=== PATIENT | male | born 1970 | race Caucasian/White ===

== ENCOUNTER 2021-03-20 13:04 | Outpatient (REF) | payer MEDICARE, MEDICAID, SELFPAY ==
--- NOTE | ~2021-03-20 | XR_ITS ---
EXAMINATION: XR FOOT, LEFT CLINICAL INFORMATION: Left foot pain. COMPARISON: None TECHNIQUE: AP, lateral, and oblique views of the left foot. FINDINGS: There is mild subluxation at the 5th MTP joint. There is subcortical lucency and irregularity involving the distal 5th metatarsal on oblique views. There is mild loss of the 1st MTP joint space with periarticular spurring seen. No visible acute fracture or dislocation noted. The ankle mortise and subtalar joints are normal. There is a moderate calcaneal heel and retrocalcaneal enthesophytes. There is dorsal intertarsal spurring. Mild lateral foot soft tissue swelling is suspected. XR/XR foot LT min 3V IMPRESSION: Large calcaneal heel and retrocalcaneal enthesophytes. Minimal subluxation changes suspected at the 5th MTP joint. Mild degenerative changes with periarticular spurring 1st MTP joint. There is irregular-appearing distal 5th metatarsal with subchondral lucency and irregularity. This could be secondary to old injury, new or old bone marrow infection with adjacent soft tissue swelling. If there is clinical concern of distal 5th digit infection, further evaluation with MRI or bone scan can be performed.
== END 2021-03-20 13:05 | disposition home or self-care (01) ==
LOC: HO.XRAY 13:04
PROVIDERS: PCP Internal Medicine; Visit Provider Internal Medicine
DX: Z79.891 Long term (current) use of opiate analgesic (principal)
CPT/HCPCS: 73630

== ENCOUNTER 2024-10-21 10:28 | Outpatient (REF) | payer MEDICARE, MEDICAID, SELFPAY ==
--- NOTE | ~2024-10-21 | XR_ITS ---
EXAMINATION: XR HAND, RIGHT CLINICAL INFORMATION: swelling right middle finger COMPARISON: None available. TECHNIQUE: PA, lateral, and oblique views of the right hand. FINDINGS: Heavily comminuted fracture of the distal one half of the middle phalanx of the third digit, with fractures significant involving the DIP joint. There appears to be an erosive/permeative component with periostitis present, most notable on the lateral radiograph, suggesting this is a likely pathologic fractures superimposed upon underlying pathologic bone process. In addition, there is a prominent lucent erosion along the radial margin of the distal aspect of the first phalanx of the third digit. This is best seen on the oblique projection. This appears too proximal to be periarticular. No additional bone lesions identified. Remainder of the wrist appear intact and normally aligned. Diffuse soft tissue swelling of the third digit is present. XR/XR hand RT min 3V IMPRESSION: 1. Comminuted likely pathologic fracture of the distal one half of the middle phalanx of the third digit, with fractures and erosions significantly involving the DIP joint. Appearance is atypical for bland fracture, and pathologic fracture is highly suspected, either from pre-existing infection/osteomyelitis, or underlying pathologic bone lesion/metastasis. Consider renal cell carcinoma or lung carcinoma. Melanoma can also involve these regions. 2. There is a lucent lesion along the radial margin of the distal aspect of the first phalanx of the third digit. This appears too proximal to represent a periarticular erosion. This may represent an additional pathologic lesion. Urgent fax was sent to the provider at 11:20 AM, 10/21/2024. Electronically signed by: Francisco Hilario MD 10/21/2024 11:17 AM EDT
--- OUTSIDE RECORDS SUMMARY | 2024-10-21 11:52 | XMS_ITS | Encounter Summary ---
Author Organization [id number] Address [address] [facility] [address] [place] [address] Care Team Providers Care Casino Change Attendant Name Role Phone Arlet Beltran MD Primary Care Provider [phone] Reason for Visit * Reason Onset Date Comments Med Refill 10/13/2024 CSA Rx refill on Methadone Encounter Details Date Type Department Care Team (Late st Contact Info) Description 10/13/2024 Refill [facility] MEDICAL [address] [place] [address] Arlet Beltran MD [address] [place] [address] Chronic bilateral low back pain with bilateral sciatica Social History Tobacco Use Types Packs/Day Years Used Date Smoking Tobacco: Former Cigarettes Smokeless Tobacco: Never Alcohol Use Standard Drinks/Week Comments Not Currently 0 (1 standard drink = 0.6 oz pur e alcohol) Housing Stability Answer Date Recorded What is your housing situation today? I have josefina cyr 12/30/[address] you li ve. Do you have problems with any of the following? None of the above 12/30/2023 Food Insecurity Answer Date Recorded Within the past 12 months, y ou worried that your food would run out before you got money to buy more: Never True 12/30/2023 Within the past 12 months,th e food you bought just didn't last and you didn't have enough money to get more: Never True Transportation Answer Date Recorded In the past 12 months, has l ack of transportation kept you from medical appts, meetings, work or from getting things needed for daily living? No 12/30/2023 Utilities Answer Date Recorded In the past 12 months, has t he electric, gas, oil or water company threatened to shut off services in your home? No 12/30/2023 Depression Answer Date Recorded Patient Health Questionnaire-2 Score 2 12/30/2023 Internet Access Answer Date Recorded Internet Access Q1 Yes 02/16/2024 Internet Access Q2 Not on file 02/16/2024 Sex and Gender Information Value Date Recorded Sex Assigned at Male 04/18/2022 6:52 PM EDT Legal Sex Male 5:35 PM EDT Gender Identity Male 05/27/2022 2:12 PM EST Sexual Orientation Straight 05/27/2022 2: 12 PM EST documented as of this encounter Miscellaneous Notes * Telephone Encounter - JENNIFER Hobbs - 10/13/2024 8:09 AM EDT [facility] Last fill Date: 09/21/24 #[id number] [facility] sold Date: 09/24 Last OV:10/07/24 Next OV: 01/06/25 Last UTOX: 10/07/24 CSA Date: 03/28/23 DNF Date: due 10/22/24 documented in this encounter Plan of Treatment Upcoming Encounters Date Type Department Care Team (Late st Contact Info) Description 01/06/2025 10:30 AM EDT Office Visit [facility] MEDICAL [address] [place] [address] Arlet Beltran MD [address] [place] [address] documented as of this encounter Visit Diagnoses Diagnosis Chronic bilateral low back pain with bilateral sciatica documented in this encounter Care Teams Casino Change Attendant Relationship Specialty Start Date End Date Arlet Beltran MD [address] [place] [address] PCP - General Internal Medicine 08/15/23 documented as of this encounter
--- OUTSIDE RECORDS SUMMARY | 2024-10-21 11:52 | XMS_ITS | Encounter Summary ---
Author Organization [facility] Address [address] [place] [address] 7[address] [place] [address] Care Team Providers Care Head Still Operator Name Role Phone Arlet Beltran MD Primary Care Provider [phone] Chidi Ojeda NP Primary Care Provider [phone] Arlet Beltran MD Primary Care Provider [phone] Encounter Details Date Type Department Care Team (Late st Contact Info) Description 05/15/2022 Abstract [facility] [address] [place] [address] Arlet Beltran MD [address] [place] [address] Social History Tobacco Use Types Packs/Day Years Used Date Smoking Tobacco: Never Assessed Sex and Gender Information Value Date Recorded Sex Assigned at Male 04/18/2022 6:52 PM EDT Legal Sex Male 5:35 PM EDT Gender Identity Male 05/27/2022 2:12 PM EST Sexual Orientation Straight 05/27/2022 2: 12 PM EST documented as of this encounter Plan of Treatment Upcoming Encounters Date Type Department Care Team (Late st Contact Info) Description 01/06/2025 10:30 AM EDT Office Visit [facility] [address] [place] [address] Arlet Beltran MD [address] [place] [address] documented as of this encounter Visit Diagnoses Not on filedocumented in this encounter Care Teams Head Still Operator Relationship Specialty Start Date End Date Arlet Beltran MD [address] [place] [address] PCP - General Internal Medicine 04/14/23 08/03/23 Chidi Ojeda NP [address] [place] [address] PCP - General Internal Medicine 08/04/23 08/14/23 Arlet Beltran MD [address] [place] [address] PCP - General Internal Medicine 08/15/23 documented as of this encounter
--- OUTSIDE RECORDS SUMMARY | 2024-10-21 11:52 | XMS_ITS | Clinical Summary ---
Author Organization [address] [place] [address] Address [address] [place] [address] Phone Care Team Providers Care Bilingual Legal Assistant Name Role Phone Arlet Beltran MD Primary Care Provider [phone] Allergies Active Allergy Reactions Criticality Noted Date Comments Cephalexin 05/15/2022 Other reaction(s): Unknown Ciprofloxacin-Hydrocortisone Swelling 010 Cyproheptadine 05/15/2022 Other reaction(s): Unknown Metronidazole 05/15/2022 Other reaction(s): Unknown Medications magnesium aspart,citrate, oxide (Triple Magnesium Complex) 400 mg magnesium capsule Take 1 Tablet by mouth 2 times daily. Active methadone (DOLOPHINE) 10 mg tablet Take 2 Tablets by mouth 3 times daily. Active atorvastatin (LIPITOR) 80 mg tablet Take 1 Tablet by mouth daily. Active warfarin (COUMADIN) 2 mg tablet Managed by [facility]. Active metFORMIN XR (GLUCOPHAGE-XR) 500 mg 24 hr tablet Take 4 Tablets by mouth Daily before dinner. Active pregabalin (LYRICA) 100 mg capsule Take 1 Capsule by mouth 2 times daily. Active ALPRAZolam (XANAX) 1 mg tablet Take 1 Tablet by mouth 2 times daily. Active SITagliptin phosphate (Januvia) 100 mg tablet Take 1 Tablet by mouth daily. Active potassium chloride 20 mEq tablet extended release Take 1 Tablet by mouth daily. Active furosemide (LASIX) 20 mg tablet Take 2 Tablets by mouth daily. Active metoprolol tartrate (LOPRESSOR) 25 mg tablet Take 1 Tab by mouth 2 times daily. 06/04/2010 Active Active Problems Problem Noted Date Diagnosed Date Peripheral arterial disease (CMS/HCC V24) 2023 Overview (04/20/2024): Last Assessment & Plan: Going to have peripheral ultrasounds performed to see if there is arterial disease in this gentleman. He will certainly has some component of venous insufficiency. Pending the results over refer him to our vascular physician for further management. I recommended leg elevation when not ambulatory, continue diuretics. He has been resistant to use of vascular support stockings in the past. 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 He is being morbidly obese and lost quite a bit of weight. Previous evaluation suggested preserved left ventricular function but I do not see one for quite some time. Last Assessment & Plan: This gentleman has peripheral edema and likely has peripheral arterial and venous insufficiency. He is following a fairly low-sodium diet. He has been on a stable diuretic dose with a fairly normal creatinine and potassium today. I would continue with his current diuretic dose and we will assess his LV function with a repeat echocardiogram. He will continue to monitor his weight closely. Coronary artery disease 07/11/2010 Overview (04/20/2024): LM normal, distal LAD moderate diffuse disease, mid LAD 80% stenosis, OM1, very small with severe diffuse disease, OM2 small-medium with diffuse 80% stenosis, RCA distal vessel very small and 100% stenosis. EF 45-50% Overall, the patient's CAD is unattractive for PCI or CABG. Last Assessment & Plan: No active angina but limited physically and has a history of diabetes. He is pending abdominal surgery and I would like to get a pharmacologic nuclear study prior to his proceeding to be sure there is no significant ischemic burden. He will continue on simvastatin, metoprolol and aspirin.If this gentleman has a fairly benign nuclear study and relatively preserved LVEF and this should be a fairly modest risk from a cardiac standpoint with proceeding with his abdominal surgery and no further testing would be needed. Hyperlipidemia with target LDL less than 70 06/17 Overview (04/20/2024): IMO update Last Assessment & Plan: Continue with simvastatin. Goal LDL would be less than 70 and even lower ideally Hypertension 07/11/2010 Ventricular tachycardia (CMS/HCC V24, CMS/HCC V2 8) 07/11/2010 Overview (04/20/2024): History of a cardiac arrest after postoperative abdominal surgery bleeding with apparent NSTEMI. He did have an ICD placed however that was ultimately removed after he developed mitral valve endocarditis. Given his LVEF is preserved it was not replaced. He has been on amiodarone since then. Last Assessment & Plan: This 53-year-old gentleman is on chronic amiodarone for arrhythmia suppression. He has been maintaining sinus rhythm but I wonder at his young age whether he can tolerate long-term amiodarone. I think it is reasonable to have him come off of the amiodarone and monitor for any recurrent arrhythmias if his LVEF is in the normal range and he has no significant ischemic burden based on the nuclear study. Immunizations Name Administration Dates Next Due Moderna SARS-CoV-2 COVID-19, mRNA, LNP-S, preservative free 11/16/2020,10/19/2020 Social History Tobacco Use Types Packs/Day Years Used Date Smoking Tobacco: Former Smokeless Tobacco: Former Quit: 05/01/2010 Alcohol Use Standard Drinks/Week Comments Not Currently 0 (1 standard drink = 0.6 oz pur e alcohol) Sex and Gender Information Value Date Recorded Sex Assigned at Not on file Legal Sex Male 9:47 AM EST Gender Identity Not on file Sexual Orientation Not on file Obstetrics History Last Filed Vital Signs Vital Sign Reading Time Taken Comments Blood Pressure 130/80 07/16/2024 7:44 AM EST Pulse 71 07/16/2024 7:44 AM EST Temperature - - Respiratory Rate - - Oxygen Saturation 97% 07/16/2024 7:44 AM EST Inhaled Oxygen Concentration - - Weight 118 kg (260 lb) 07/16/2024 7:44 AM EST Height 182.9 cm (6') 07/16/2024 7:44 AM EST Body Mass Index 35.26 07/16/2024 7:44 AM EST Plan of Treatment Health Maintenance Due Date Last Done Comments Diabetes: Annual Foot Exam 1980 Diabetes: Annual Retina Eye Exam 1980 Hepatitis B Vaccines (1 of 3 - 19+ 3-dose series) 1989 Pneumococcal Vaccine: 50+ Years (2 of 2 - PCV) 2020 09/08/2013, 11/07/2010 Zoster Vaccines (1 of 2) 2020 Colorectal Cancer Screening: Colonoscopy 05/19/2022 Depression Screening 05/19/2022 HIV Screening 05/19/2022 Hepatitis C Screening 05/19/2022 Medicare Annual Wellness Visit 05/19/2022 Social Influencers of Health Screening 05/19/2022 COVID-19 Vaccine ( season) 2024 06/06/2022, 11/16/2020, 10/19/2020 Diabetes: Blood Sugar Control Test (HGBA1C) 07/16/2024 12/30/2023, 08/12/2023 Diabetes: Annual Urine Albumin-Creatinine Ratio (uACR) 08/12/2024 08/12/2023 Diabetes: Annual GFR (Glomerular Filtration Rate) 08/12/2024 08/12/2023 Hypertension/CHF/CAD Annual BMP Blood Test 08/12/2024 08/12/2023 DTaP,Tdap,and Td Vaccines (3 - Td or Tdap) 05/31/2025 05/31/2015, 02/23/2013 Cholesterol Screening (Lipid Panel) 08/12/2028 08/12/2023, 08/12/2023 Pneumococcal Vaccine: Pediatrics (0 to 5 Years) and At-Risk Patients (6 to 64 Years) Aged Out 09/08/2013, 11/07/2010 No longer eligibl e based on patient's age to complete this topic MMR Vaccines Aged Out 09/08/2014 No longer eligi ble based on patient's age to complete this topic Influenza Vaccine Completed 04/13/2024, , 06/06/2022, Additional history exists HIB Vaccines Aged Out No longer eligi ble based on patient's age to complete this topic HPV Vaccines Aged Out No longer eligi ble based on patient's age to complete this topic Hepatitis A Vaccines Aged Out No long er eligible based on patient's age to complete this topic IPV Vaccines Aged Out No longer eligi ble based on patient's age to complete this topic Meningococcal ACWY Vaccine Aged Out N o longer eligible based on patient's age to complete this topic Meningococcal B Vaccine Aged Out No l onger eligible based on patient's age to complete this topic RSV Immunization Patients Under 20 months Aged Out No longer eligible based on patient's age to complete this topic Varicella Vaccines Aged Out No longer eligible based on patient's age to complete this topic Procedures Procedure Name Priority Date/Time Associated Diagnosis Comments URINE ALBUMIN CREATININE RATIO Routine 08/12/2023 ANNUAL BMP BLOOD TEST Routine 08/12/2023 HEMOGLOBIN A1C Routine 08/12/2023 LIPID PANEL Routine 08/12/2023 from Last 3 Months or Most Recently Relevant to Health Maintenance Results * Urine Albumin Creatinine Ratio (08/12/2023) Pathologist [facility] Urine Albumin Creatinine Ratio Abstracted Result [facility] Provider HEALTH MAINTENANCE Final Result * Annual BMP Blood Test (08/12/2023) Pathologist [facility] Annual BMP Blood Test Abstracted [facility] Provider HEALTH MAINTENANCE Final Result * Hemoglobin A1c (08/12/2023) Pathologist [facility] Hemoglobin A1C 0.0 % Comment:No interpretation, A bstracted Blood Venous blood specimen / Unknown [facility] Provider LAB BLOOD ORDERABLES Michaela l Result * Lipid panel (08/12/2023) Pathologist [facility] Triglycerides 0 mg/dL Comment:No interpretation, A bstracted Cholesterol 0 mg/dL Comment:No interpretation, A bstracted HDL 0 mg/dL Comment:No interpretation, A bstracted LDL Cholesterol 0 mg/dL Comment:No interpretation, A bstracted Blood Venous blood specimen / Unknown us Historical Provider LAB BLOOD ORDERABLES Michaela l Result from Last 3 Months or Most Recently Relevant to Health Maintenance Insurance MEDICARE MEDICAID - [place] Care Teams Bilingual Legal Assistant Relationship Specialty Start Date End Date Arlet Beltran MD [address] [place] [address] PCP - General 08/25/13
--- OUTSIDE RECORDS SUMMARY | 2024-10-21 11:52 | XMS_ITS | Encounter Summary ---
Author Organization [facility] Address [address] [place] [address] 7[address] [place] [address] Care Team Providers Care Slubber Tender Name Role Phone Arlet Beltran MD Primary Care Provider [phone] Chidi Ojeda NP Primary Care Provider [phone] Arlet Beltran MD Primary Care Provider [phone] Encounter Details Date Type Department Care Team (Latest Contact Info) Description 11/20/2018 Abstract [facility] CONVERSIONS Dental, Provider, DDS Social History Tobacco Use Types Packs/Day Years [...] Description 01/06/2025 10:30 AM EDT Office Visit [facility] MEDICAL [address] [place] [address] Arlet Beltran MD [address] [place] [address] documented as of this encounter Visit Diagnoses Not on filedocumented in this encounter Care Teams Slubber Tender Relationship Specialty Start Date End Date Arlet Beltran MD [address] [place] [address] PCP - General Internal Medicine 04/14/23 08/03/23 Chidi Ojeda NP [address] [place] [address] PCP - General Internal Medicine 08/04/23 08/14/23 Arlet Beltran MD [address] [place] [address] PCP - General Internal Medicine 08/15/23 documented as of this encounter
--- OUTSIDE RECORDS SUMMARY | 2024-10-21 11:52 | XMS_ITS | Clinical Summary ---
Author Organization [facility] Address [address] [place] [address] Care Team Providers Care Corporate Travel Manager Name Role Phone Unavailable Primary Care Provider Unavailabl e Source Comments PLEASE NOTE, if this patient is a minor, it may be UNLAWFUL to discuss sensitive information that is contained in these records (such as FAMILY PLANNING, MENTAL HEALTH or SUBSTANCE ABUSE) with the minor patient's parent or other person without the patient's specific authorization.[facility] Allergies Active Allergy Reactions Criticality Noted Date Comments Cephalexin 05/15/2022 Other reaction(s): Unknown Ciprofloxacin 05/15/2022 Other reaction(s): Unknown Cyproheptadine 05/15/2022 Other reaction(s): Unknown Metronidazole 05/15/2022 Other reaction(s): Unknown Medications magnesium 250 mg tab Take 1 Capsule by mouth 4 (four) times a day Active ALPRAZolam (XANAX) 1 mg tablet Take 1 mg by mouth twice a day 05/30/2023 Active atorvastatin (LIPITOR) 80 mg tablet Take 1 Tablet by mouth once daily 11/28/2022 Active lisinopriL 10 mg tablet 1 Tablet daily 06/05/2021 Active metFORMIN XR (GLUCOPHAGE-XR) 500 mg 24 hr tablet Take 2,000 mg by mouth 12/24/2022 Active metOLazone (ZAROXOLYN) 2.5 mg tablet Take 2.5 mg by mouth daily 09/02/2022 Active metoprolol tartrate (LOPRESSOR) 25 mg tablet TAKE 1/2 TABLET BY MOUTH 2 TIMES DAILY X90 DAYS 05/22/2023 Active pantoprazole (PROTONIX) 20 mg EC tablet TAKE 1 TABLET BY MOUTH EVERY DAY FOR 90 DAYS 04/17/2023 Active KLOR-CON 20 mEq tablet Take 1 Tablet by mouth once daily 12/09/2022 Active pregabalin (LYRICA) 100 mg capsule Take 100 mg by mouth twice a day 05/30/2023 Active JANUVIA 100 mg tablet Take 1 Tablet by mouth once daily 07/01/2022 Active warfarin (COUMADIN) 2.5 mg tablet TAKE 1 AND 1/2 TABLETS BY MOUTH EVERY DAY for 90 09/02/2022 Active loperamide (IMODIUM) 2 mg capsule TAKE 1 CAPSULE BY MOUTH 4 TIMES A DAY NEEDED for 30 07/01/2023 Active furosemide (LASIX) 40 mg tablet TAKE 1 TABLET BY MOUTH EVERY DAY for 90 09/02/2022 Active amoxicillin (AMOXIL) 500 mg capsule TAKE 4 CAPSULES (2,000 MG) BY MOUTH 1 (ONE) TIME FOR 1 DOSE. 07/01/2023 Active Active Problems Problem Noted Date Diagnosed Date Diverticulitis 05/28/2022 Hypertriglyceridemia 05/28/2022 Atherosclerosis of coronary artery 05/27/2022 Atopic dermatitis 05/27/2022 CHF (congestive heart failure) ([facility]) 022 Chronic pain after traumatic injury 05/27/2022 Depression 05/27/2022 Entrapment of right ulnar nerve 05/27/2022 Eosinophilia 05/27/2022 Essential (primary) hypertension 05/27/2022 Gastro-esophageal reflux disease without esophag itis 05/27/2022 Gout of right foot 05/27/2022 H/O mitral valve replacement with mechanical christal ve 05/27/2022 History of partial colectomy 05/27/2022 Hx of CABG 05/27/2022 Hyperglycemia due to diabetes mellitus ([facility]) 05/27/2022 Hyperlipidemia 05/27/2022 Hypomagnesemia 05/27/2022 Resolved Problems Problem Noted Date Diagnosed Date Resolved Date Diarrhea 05/27/2022 08/04/2023 Social History Tobacco Use Types Packs/Day Years Used Date Smoking Tobacco: Never Assessed Social Connections Answer Date Recorded Connectedness 0 02/29/2024 Financial Resource Strain Answer Date R ecorded Financial Resource Strain 0 2023 Stress Answer Date Recorded Stress 0 06/23/2023 Physical Activity Answer Date Recorded Physical Activity 0 06/23/2023 Food Insecurity Answer Date Recorded Food 0 03/11/2024 Transportation Needs Answer Date Record ed Transportation 0 06/23/2023 Housing Stability Answer Date Recorded Housing 0 06/23/2023 Safety and Environment Answer Date Kobe rded Safety 0 06/23/2023 Utilities Answer Date Recorded Utilities 0 06/23/2023 Employment Answer Date Recorded Stress 0 02/29/2024 Sex and Gender Information Value Date Recorded Sex Assigned at Not on file Legal Sex Male 10:53 AM PST Gender Identity Not on file Sexual Orientation Not on file Plan of Treatment Health Maintenance Due Date Last Done Comments Anxiety Screening 1970 Depression Monitoring 1970 Diabetes Foot Exam 1970 Hepatitis C Screening 1970 Lipid Screening 1970 Serum Creatinine 1970 Tobacco Screening 1970 Urine Albumin Creatinine Rat io Screening 1970 Retinopathy Screening 1983 HIV Screening 1985 Imm-Hepatitis B (1 of 3 - 19 + 3-dose series) 1989 Imm-Pneumococcal (2 of 2 - PCV) 09/08/2014 4, 11/07/2010 CT Colonography 2015 Colonoscopy 2015 Colorectal Cancer Screening 2015 FIT/gFOBT 2015 Fecal DNA 2015 Flexible Sigmoidoscopy 2015 Imm-Zoster, Recombinant (1 of 2) 2020 Diabetes HbA1c 03/26/2023 12/24/2022, 12/07/2021, 10/29/2019, Additional history exists [id number] ( season) 2024 06/06/2022, 11/16/2020, 10/19/2020 Imm-Influenza (#1) 2024 03/28/2023, 1 08/06/2020, 03/06/2021, Additional history exists Alcohol and Drug Screen 06/16/2024 Imm-DTaP/Tdap/Td (3 - Td or Tdap) 05/31/2025 015, 02/23/2013 Insurance [place] MEDICAID DENT[place] Member Subscriber Plan / Payer (Ef fective 2023-Present) Name:Sami Daniel Relation to Subscriber:Self Name:Daniel Palmer Payer ID:[id number] Group ID:Not on file Type:Medicaid Address: [place] [id number]
--- OUTSIDE RECORDS SUMMARY | 2024-10-21 11:52 | XMS_ITS | Encounter Summary ---
Author Organization [employer] [facility] Address [address] [place] [address] [address] [place] [address] Care Team Providers Care Crystal Cutter Name Role Phone Arlet Beltran MD Primary Care Provider [phone] Chidi Ojeda NP Primary Care Provider [phone] Arlet Beltran MD Primary Care Provider [phone] Reason for Visit * Reason Onset Date Comments Med Refill 05/22/2023 Encounter Details Date Type Department Care Team (Late st Contact Info) Description 05/22/[address] [facility] MEDICAL [address] [place] [address] Arlet Beltran MD [address] [place] [id number] Chronic pain after traumatic injury Social History Tobacco Use Types Packs/Day Years [...] Description 01/06/2025 10:30 AM EDT Office Visit [facility] MEDICAL [address] [place] [address] Arlet Beltran MD [address] [place] [address] documented as of this encounter Visit Diagnoses Diagnosis Chronic pain after traumatic injury documented in this encounter Care Teams Crystal Cutter Relationship Specialty Start Date End Date Arlet Beltran MD [address] [place] [address] PCP - General Internal Medicine 04/14/23 08/03/23 Chidi Ojeda NP [address] [place] [address] PCP - General Internal Medicine 08/04/23 08/14/23 Arlet Beltran MD [address] [place] [address] PCP - General Internal Medicine 08/15/23 documented as of this encounter
--- OUTSIDE RECORDS SUMMARY | 2024-10-21 11:52 | XMS_ITS | Encounter Summary ---
Author Organization [facility] Address [address] [place] [address] 7[address] [place] [address] Care Team Providers Care Sweeper Brush Maker Machine Name Role Phone Arlet Beltran MD Primary Care Provider [phone] Reason for Visit * Reason Onset Date Comments Med Refill 10/23/2023 Encounter Details Date Type Department Care Team (Late st Contact Info) Description 10/23/2023 Refill [facility] MEDICAL [address] [place] [address] Arlet Beltran MD [address] [place] [address] Chronic bilateral low back pain with bilateral [...] Description 01/06/2025 10:30 AM EDT Office Visit [address] [address] Arlet Beltran MD [address] [place] [address] documented as of this encounter Visit Diagnoses Diagnosis Chronic bilateral low back pain with bilateral sciatica documented in this encounter Care Teams Sweeper Brush Maker Machine Relationship Specialty Start Date End Date Arlet Beltran MD [address] [place] [address] PCP - General Internal Medicine 08/15/23 documented as of this encounter
--- OUTSIDE RECORDS SUMMARY | 2024-10-21 11:52 | XMS_ITS | Encounter Summary ---
Author Organization [facility] Address [address] [place] [address] 7t [place] [address] Care Team Providers Care Cutter Operator Asbestos Shingle Name Role Phone Arlet Beltran MD Primary Care Provider [phone] Chidi Ojeda NP Primary Care Provider [phone] Arlet Beltran MD Primary Care Provider [phone] Encounter Details Date Type Department Care Team (Late st Contact Info) Description 05/28/2022 Orders Only [facility] MEDICAL [address] [place] [address] Gricel La [place] Social History Tobacco Use Types Packs/Day Years [...] Description 01/06/2025 10:30 AM EDT Office Visit [facility] [address] [place] [address] Arlet Beltran MD [address] [place] [address] documented as of this encounter Procedures Procedure Name Priority Date/Time Associated Diagnosis Comments METHADONE+METABOLITE CONFIRMATION, ORAL FLUID Routine 03/28/2023 11:32 AM EDT CBC Routine 06/06/2022 9:40 AM EST TSH Routine 06/06/2022 9:40 AM EST LIPID PANEL, STANDARD Routine 06/06/2022 9:40 AM EST COMPREHENSIVE METABOLIC PANEL Routine 06/06/2022 9:40 AM EST documented in this encounter Results * (ABNORMAL) Methadone+Metabolite Confirmation, Oral Fluid (03/28/2023 11:32 AM EDT) Methadone+Metabo lite in Saliva by Confirmatory method POSITIVE(A) [facility] Comment: Reference range: Cutoff EQ 10 (NOTE) Confirmation performed by Mass Spectrometry EDDP NEGATIVE [facility] Comment:Reference range: Cut off EQ 25 Methadone, Oral Fluid POSITIVE(A) [facility] Methadone 71 [facility] Comment: Reference range: Cutoff EQ 25 Unit: ng/mL Testing performed or reported by [facility], a Service of [facility], [address] [place] [address] Bobby Pacheco MD, Electronic Test Technician CLIA# [id number] 03/28/2023 11:3 2 AM EDT 03/28/2023 7:28 PM EDT Arlet Beltran MD LAB BODY FLUIDS AND STOOLS ORDER CLAUDE Final Result [facility] [address] [place] [address] * (ABNORMAL) TSH (06/06/2022 9:40 AM EST) TSH 5.61(H) (0.4-4.2) uIU/mL [facility] Comment: Testing performed or reported by [facility], a Service of [facility], [address] [place] [address] Elias Liao MD, Electronic Test Technician CLIA# [id number] 06/06/2022 9:40 AM EST 06/06/2022 9:46 AM EST Arlet Beltran MD LAB BLOOD ORDERABLES Final Resul t Performing Organization Address [facility]/ZIP Co de Phone Number [facility] [address] [place] [address] * (ABNORMAL) Lipid Panel, Standard (06/06/2022 9:40 AM EST) Cholesterol, Total 134 (<200) MG/DL [facility] Triglyceride (mg/dL) in Serum/Plasma 494(H) (<150) MG/DL [facility] HDL Cholesterol 25(L) (>39) MG/DL [facility] LDL Cholesterol, Calculated 10 (0-130) MG/DL [facility] Non HDL Chol. (LDL+VLDL) 109 (<160) MG/DL [facility] Comment: Testing performed or reported by [facility], a Service of [facility], [address] [place] [address] Elias Liao MD, Electronic Test Technician [facility]# [id number] 06/06/2022 9:40 AM EST 06/06/2022 9:46 AM EST Arlet Beltran MD LAB BLOOD ORDERABLES Final Resul t Performing Organization Address [facility] Co de Phone Number [address] [address] * (ABNORMAL) Comprehensive Metabolic Panel (06/06/2022 9:40 AM EST) Glucose 343(H) (70-99) MG/DL [facility] BUN 38(H) (6-20) MG/DL [facility] Creatinine, Serum 1.1 (0.7-1.2) MG/DL [facility] Sodium 135 (133-145) MMOL/L [facility] Potassium 4.2 (3.6-5.2) MMOL/L [facility] Chloride 89(L) (98-107) MMOL/L [facility] Bicarbonate 29 (22-29) MMOL/L [facility] Anion Gap 17 (4-17) [facility] Albumin 4.3 (3.4-4.8) GM/DL [facility] Calcium 9.5 (8.6-10.5) MG/DL [facility] Bilirubin, Total 0.6 (0-1.2) MG/DL [facility] Total Protein 8.2 (6.2-8.2) GM/DL [facility] Albumin/Globulin Ratio 1.1 [facility] AST 26 (0-40) U/L [facility] Alkaline Phosphatase 77 (40-129) U/L [facility] ALT (SGPT) 17 (0-41) U/L [facility] eGFR Creatinine 83 ML/MIN/1.7 3 M2 [facility] Comment: Creatinine based estimated glomerular filtration (eGFR) in adults is calculated using the [employer] recommended 2020 CKD-EPI equation. Estimates GFR from serum creatinine, age and sex. Testing performed or reported by [facility], a Service of [facility], [address] [place] [address] Elias Liao MD, Electronic Test Technician [facility]# [id number] 06/06/2022 9:40 AM EST 06/06/2022 9:46 AM EST us Arlet Beltran MD LAB BLOOD ORDERABLES Final Resul t [address] [address] * (ABNORMAL) CBC (06/06/2022 9:40 AM EST) WBC 6.6 (4.0-11.0) K/MM3 [facility] RBC 4.20(L) (4.70-6.10 ) M/MM3 [facility] HGB 11.2(L) (13.7-17.1 ) GM/DL [facility] HCT 36.6(L) (40.5-50.0 ) % [facility] MCV 87.1 (80.0-94.0 ) FL [facility] MCH 26.7(L) (27.0-34.0 ) PG [facility] McHC 30.6(L) (33.0-37.0 ) g/dL [facility] PLT 267 (150-460) K/MM3 [facility] RDW-SD 47.7(H) (<47.0) FL [facility] MPV 12.3 (9.4-12.4) FL [facility] Automated NRBC 0.0 #/100 WBC'S [facility] ABS NRBC 0.0 K/MM3 [facility] Comment: Testing performed or reported by [facility], a Service of [facility], [address] [place] [address] Elias Liao MD, Electronic Test Technician [facility]# [id number] 06/06/2022 9:40 AM EST 06/06/2022 9:46 AM EST us Arlet Beltran MD LAB BLOOD ORDERABLES Final Resul t [facility] [address] [place] [address] documented in this encounter Visit Diagnoses Not on filedocumented in this encounter Care Teams Cutter Operator Asbestos Shingle Relationship Specialty Start Date End Date Arlet Beltran MD [address] [place] [address] PCP - General Internal Medicine 04/14/23 08/03/23 Chidi Ojeda NP [address] [place] [address] PCP - General Internal Medicine 08/04/23 08/14/23 Arlet Beltran MD [address] [place] [address] PCP - General Internal Medicine 08/15/23 documented as of this encounter
--- OUTSIDE RECORDS SUMMARY | 2024-10-21 11:52 | XMS_ITS | Encounter Summary ---
Author Organization [employer] [facility] Address [address] [place] [address] 7t [place] [address] Care Team Providers Care Auto Repair Shop Manager Name Role Phone Arlet Beltran MD Primary Care Provider [phone] Chidi Ojeda NP Primary Care Provider [phone] Arlet Beltran MD Primary Care Provider [phone] Reason for Visit * Reason Onset Date Comments Med Refill 05/30/2023 Encounter Details Date Type Department Care Team (Late st Contact Info) Description 05/30/2023 Refill [facility] MEDICAL [address] [place] [address] Arlet Beltran MD [address] [place] [address] Panic attacks; Chronic pain after traumatic injury Social History [...] encounter Miscellaneous Notes * Telephone Encounter - Arielle Jose, Fazal - 05/30/2023 2:48 PM EST [facility] Last fill Date: 05/06/23 Last OV: 03/28/23 Next OV: 07/04/23 Last UTOX: 03/28/23 CSA Date: 03/28/23 DNF Date: REFILL DUE DATE 06/03/23 documented in this encounter Plan of Treatment Upcoming Encounters Date Type Department Care Team (Late st Contact Info) Description 01/06/2025 10:30 AM EDT Office Visit [facility] MEDICAL [address] [place] [address] Arlet Beltran MD [address] [place] [address] documented as of this encounter Visit Diagnoses Diagnosis Panic attacks Panic disorder without agoraphobia Chronic pain after traumatic injury documented in this encounter Care Teams Auto Repair Shop Manager Relationship Specialty Start Date End Date Arlet Beltran MD [address] [place] [address] PCP - General Internal Medicine 04/14/23 08/03/23 Chidi Ojeda NP [address] [place] [address] PCP - General Internal Medicine 08/04/23 08/14/23 Arlet Beltran MD [address] [place] [address] PCP - General Internal Medicine 08/15/23 documented as of this encounter
--- OUTSIDE RECORDS SUMMARY | 2024-10-21 11:52 | XMS_ITS | Encounter Summary ---
Author Organization [employer] Address [address] [facility] 7t [place] [address] Care Team Providers Care Beer Cooler Name Role Phone Arlet Beltran MD Primary Care Provider [phone] Encounter Details Date Type Department Care Team (Late st Contact Info) Description 01/20/2024 Orders Only [facility] MEDICAL [address] [place] [address] ProviderRowena MD Social History Tobacco Use Types Packs/Day Years Used Date Smoking Tobacco: Former Cigarettes Smokeless Tobacco: Never Alcohol Use Standard Drinks/Week Comments Not Currently 0 (1 standard drink = 0.6 oz pur e alcohol) Housing Stability Answer Date Recorded What is your housing situation today? I have josefinayang cyr 12/30/[address] you [...] Recorded Patient Health Questionnaire-2 Score 2 12/30/2023 Sex and Gender Information Value Date Recorded Sex Assigned at Male 04/18/2022 6:52 PM EDT Legal Sex Male 5:35 PM EDT Gender Identity Male 05/27/2022 2:12 PM EST Sexual Orientation Straight 05/27/2022 2: 12 PM EST documented as of this encounter Plan of Treatment Upcoming Encounters Date Type Department Care Team (Late st Contact Info) Description 01/06/2025 10:30 AM EDT Office Visit [facility] MEDICAL [address] [place] [address] Arlet Beltran MD [address] [place] [address] documented as of this encounter Procedures Procedure Name Priority Date/Time Associated Diagnosis Comments VASC US LOWER EXTREMITY VENOUS DUPLEX BILATERAL Routine 01/08/2024 7:17 PM EDT documented in this encounter Results * VASC US Lower Extremity Venous Duplex Bilateral (01/08/2024 7:17 PM EDT) us Historical Provider CV VASCULAR PROCEDURES Fi nal Result documented in this encounter Visit Diagnoses Not on filedocumented in this encounter Care Teams Beer Cooler Relationship Specialty Start Date End Date Arlet Beltran MD [address] [place] [address] PCP - General Internal Medicine 08/15/23 documented as of this encounter
--- OUTSIDE RECORDS SUMMARY | 2024-10-21 11:52 | XMS_ITS | Encounter Summary ---
Author Organization [employer] Address [address] [place] [address] 7[address] [place] [address] Care Team Providers Care Precision Instrument Maker And Repairer Name Role Phone Arlet Beltran MD Primary Care Provider [phone] Chidi Ojeda NP Primary Care Provider [phone] Arlet Beltran MD Primary Care Provider [phone] Reason for Visit * Reason Comments Med Refill Encounter Details Date Type Department Care Team (Late st Contact Info) Description 05/30/2023 Refill [facility] MEDICAL [address] [place] [address] Arlet Beltran MD [address] [place] [address] Chronic pain after traumatic injury; Panic attacks Social History Tobacco Use Types Packs/Day Years [...] encounter Miscellaneous Notes * Telephone Encounter - Dawson Armstrong CMA - 05/30/2023 10:00 AM EST We received duplicate requests for these meds. documented in this encounter Plan of Treatment Upcoming Encounters Date Type Department Care Team (Late st Contact Info) Description 01/06/2025 10:30 AM EDT Office Visit [facility] MEDICAL [address] [place] [address] Arlet Beltran MD [address] [place] [address] documented as of this encounter Visit Diagnoses Diagnosis Chronic pain after traumatic injury Panic attacks Panic disorder without agoraphobia documented in this encounter Care Teams Precision Instrument Maker And Repairer Relationship Specialty Start Date End Date Arlet Beltran MD [address] [place] [address] PCP - General Internal Medicine 04/14/23 08/03/23 Chidi Ojeda NP [address] [place] [address] PCP - General Internal Medicine 08/04/23 08/14/23 Arlet Beltran MD [address] [place] [address] PCP - General Internal Medicine 08/15/23 documented as of this encounter
--- OUTSIDE RECORDS SUMMARY | 2024-10-21 11:52 | XMS_ITS | Clinical Summary ---
Author Organization [employer] Address [address] [place] [address] [address] [place] [address] Care Team Providers Care Television Parts Tester Name Role Phone Arlet Beltran MD Primary Care Provider [phone] Allergies Active Allergy Reactions Criticality Noted Date Comments Cephalexin 05/15/2022 Other reaction(s): Unknown Ciprofloxacin 05/15/2022 Other reaction(s): Unknown Cyproheptadine 05/15/2022 Other reaction(s): Unknown Metronidazole 05/15/2022 Other reaction(s): Unknown Medications lisinopril 10 MG tablet 1 tablet in the morning. 06/05/20 21 Active magnesium 250 MG tablet Take 1 capsule by mouth 4 times daily. Active mupirocin (Bactroban) 2 % ointment APPLY 1 APPLICATION ON THE SKIN DAILY HEEL ULCER 10/16/19 24 Active KLOR-CON 20 MEQ ER tablet TAKE 1 TABLET BY MOUTH EVERY DAY 90 tablet 3 11/08/19 24 Active metFORMIN XR (Glucophage-XR ) 500 MG 24 hr tablet TAKE 4 TABLETS (2,000 MG) BY MOUTH WITH EVENING MEAL. DO NOT CRUSH, CHEW, OR SPLIT. 360 tablet 3 03/08/20 24 025 Active pantoprazole (ProtoNix) 20 MG EC tabletIndicati ons:Gastro-eso phageal reflux disease without esophagitis TAKE 1 TABLET BY MOUTH EVERY DAY 90 tablet 3 04/13/20 24 Active Januvia 100 MG tabletIndicati ons:Hyperglyce ana rosa due to diabetes mellitus (CMS/HCC) TAKE 1 TABLET BY MOUTH EVERY DAY IN THE MORNING 90 tablet 3 07/07/19 25 Active metoprolol tartrate (Lopressor) 25 MG tabletIndicati ons:Atheroscle rotic heart disease of [place] coronary artery without angina pectoris TAKE 1/2 TABLET BY MOUTH 2 TIMES DAILY X90 DAYS 90 tablet 08/02/19 25 Active ALPRAZolam (Xanax) 1 MG tabletIndicati ons:Panic attacks Take 1 tablet (1 mg) by mouth 2 times daily. 56 tablet 3 08/20/19 25 Active pregabalin (Lyrica) 100 MG capsuleIndicat ions:Chronic pain after traumatic injury Take 1 capsule (100 mg) by mouth 2 times daily. 56 capsule 3 08/20/19 25 Active atorvastatin (Lipitor) 80 MG tablet TAKE 1 TABLET (80 MG) BY MOUTH IN THE MORNING 90 tablet 3 09/10/19 25 Active warfarin (Coumadin) 2.5 MG tabletIndicati ons:Congestive heart failure, unspecified HF chronicity, unspecified heart failure type (CMS/HCC) TAKE 1 AND 1/2 TABLETS BY MOUTH EVERY DAY for 90 135 tablet 3 09/24/19 25 Active metOLazone (Zaroxolyn) 2.5 MG tabletIndicati ons:Congestive heart failure, unspecified HF chronicity, unspecified heart failure type (CMS/HCC) Take 1 tablet (2.5 mg) by mouth Once per day. 90 tablet 3 09/24/19 25 Active methadone (Dolophine) 10 MG tabletIndicati ons:Chronic bilateral low back pain with bilateral sciatica Take 2 tablets (20 mg) by mouth every 8 (eight) hours for 28 days. DX: FOR CHRONIC PAIN 168 tablet 10/19/19 25 025 Active furosemide (Lasix) 40 MG tabletIndicati ons:Congestive heart failure, unspecified HF chronicity, unspecified heart failure type (CMS/HCC) TAKE 1 TABLET BY MOUTH EVERY DAY FOR 90 DAYS 90 tablet 10/20/19 25 Active loperamide (Imodium) 2 MG capsuleIndicat ions:Diarrhea, unspecified type TAKE 1 CAPSULE BY MOUTH 4 TIMES A DAY NEEDED for 30 120 capsule 10/20/19 25 Active metOLazone (Zaroxolyn) 2.5 MG tabletIndicati ons:Congestive heart failure, unspecified HF chronicity, unspecified heart failure type (CMS/HCC) Take 1 tablet (2.5 mg) by mouth in the morning. 90 tablet 3 09/24/19 24 025 Discontinued(R eorder (will not trigger notification to Pharmacy)) furosemide (Lasix) 40 MG tabletIndicati ons:Congestive heart failure, unspecified HF chronicity, unspecified heart failure type (CMS/HCC) TAKE 1 TABLET BY MOUTH EVERY DAY FOR 90 DAYS 90 tablet 08/02/19 25 025 Discontinued(R eorder (will not trigger notification to Pharmacy)) methadone (Dolophine) 10 MG tabletIndicati ons:Chronic bilateral low back pain with bilateral sciatica Take 2 tablets (20 mg) by mouth every 8 (eight) hours for 28 days. DX: FOR CHRONIC PAIN 168 tablet 09/22/19 25 025 Discontinued(R eorder (will not trigger notification to Pharmacy)) loperamide (Imodium) 2 MG capsuleIndicat ions:Diarrhea, unspecified type TAKE 1 CAPSULE BY MOUTH 4 TIMES A DAY NEEDED for 30 120 capsule 09/21/19 25 025 Discontinued(R eorder (will not trigger notification to Pharmacy)) Active Problems Problem Noted Date Diagnosed Date Venous insufficiency of both lower extremities 0 08/12/2023 Hypokalemia 08/12/2023 Chronic bilateral low back pain with bilateral s ciatica 08/12/2023 Anticoagulated 08/12/2023 Type 2 diabetes mellitus wit hout complication, without long-term current use of insulin 08/11/2023 Obesity with body mass index 30 or greater 05/28 Radiculopathy with lower extremity symptoms 05/16 Overview (05/28/2022): left Hypertriglyceridemia 05/28/2022 Old myocardial infarction 05/28/2022 Hyposomnia 05/28/2022 History of diverticulitis 05/28/2022 CAD (coronary artery disease) 05/27/2022 Hx of CABG 05/27/2022 CHF (congestive heart failure) 05/27/2022 H/O mitral valve replacement with mechanical christal ve 05/27/2022 Essential (primary) hypertension 05/27/2022 Microalbuminuria 05/27/2022 Hyperlipidemia 05/27/2022 Obstructive sleep apnea 05/27/2022 Chronic pain after traumatic injury 05/27/2022 Depression 05/27/2022 Atopic dermatitis 05/27/2022 Diarrhea 05/27/2022 Entrapment of right ulnar nerve 05/27/2022 Eosinophilia 05/27/2022 Gastro-esophageal reflux disease without esophag itis 05/27/2022 Gout of right foot 05/27/2022 History of partial colectomy 05/27/2022 Hyperglycemia due to diabetes mellitus Hypomagnesemia 05/27/2022 Incisional hernia 05/27/2022 Memory loss 05/27/2022 Neuropathy of both feet 05/27/2022 Pain in right foot 05/27/2022 Pain of left foot 05/27/2022 Panic attacks 05/27/2022 Right ankle pain 05/27/2022 Vasculitis 05/27/2022 Resolved Problems Problem Noted Date Diagnosed Date Resolved Date Complication of surgical procedure 05/28/2022 06/06/2022 Obesity 05/27/2022 08/11/2023 Chronic back pain 05/27/2022 06/06/2022 Backache 05/27/2022 06/06/2022 Perforated tympanic membrane 05/27/2022 06/06/2022 Encounters Date Type Department Care Team Description 10/18/2024 Refill [facility] [address] [place] [address] Arlet Beltran MD Congestive heart failure, unspecified HF chronicity, unspecified heart failure type (CMS/HCC); Diarrhea, unspecified type 10/13/[address] [address] Arlet Beltran MD Chronic bilateral low back pain with bilateral sciatica 10/07/2024 10:00 AM EDT Office Visit [facility] [address] [place] [address] Arlet Beltran MD Swelling of right middle finger (Primary Dx); terminal system operator (current) use of opiate analgesic; Type 2 diabetes mellitus without complication, without long-term current use of insulin (CMS/HCC) 10/07/2024 Travel 10/06/2024 Travel 09/23/2024 Refill [facility] [address] [place] [address] Arlet Beltran MD Congestive heart failure, unspecified HF chronicity, unspecified heart failure type (CMS/HCC) 09/21/2024 Telephone [facility] [address] [place] [address] Arlet Beltran MD Med Refill 09/20/[address] [address] Arlet Beltran MD 09/20/[address] [address] [place], Arlene, GRINDING WHEEL OPERATOR Diarrhea, unspecified type 09/20/[address] [address] Arlet Beltran MD Congestive heart failure, unspecified HF chronicity, unspecified heart failure type ([facility]/HCC); Panic attacks 09/15/[address] [address] Arlet Beltran MD Chronic bilateral low back pain with bilateral sciatica 09/08/[address] [address] Arlet Beltran MD 08/26/[address] [address] Arlet Beltran MD swollen finger 08/25/2024 Travel 08/18/[address] [address] Arlet Beltran MD Panic attacks; Chronic bilateral low back pain with bilateral sciatica; Chronic pain after traumatic injury 08/02/[address] [address] Arlet Beltran MD Atherosclerotic heart disease of [place] coronary artery without angina pectoris; Congestive heart failure, unspecified HF chronicity, unspecified heart failure type (CMS/HCC) 07/27/[address] [address] Arlet Beltran MD Congestive heart failure, unspecified HF chronicity, unspecified heart failure type (CMS/HCC) 07/27/2024 Refill [facility] [address] [place] [address] Jacqueline Bond MD Diarrhea, unspecified type from Last 3 Months Immunizations Name Administration Dates Next Due INFLUENZA INJECTABLE QUADRIV ALANT CCIIV4 MDCK Multi-dose vial 08/17/2019 Influenza Injectable Quadriv alant Preservative Free IIV4 MDCK 03/28/2023 Influenza Quadrivalent Adjuvanted 06/06/2022 Influenza, IIV3, injectable 06/05/2021,0 03/06/2021,04/29/2017,03/15,05/31/2015,07/21/2014 Influenza, Injectable, MDCK, w/preservative 04/13/2024 Influenza, Split (incl. omar fied surface antigen) 09/08/2013,02/23/2013,02/12/2012 MMR 09/08/2014 Moderna Covid-19 Vaccine 12+ 11/16/2020,10/20/19 21 Pfizer Covid-19 Vaccine 12+ Bivalent 06/06/2022 Pneumococcal Polysaccharide PPSV23 09/08/2013, Tdap 05/31/2015,02/23/2013 Social History Tobacco Use Types Packs/Day Years Used Date Smoking Tobacco: Former Cigarettes Smokeless Tobacco: Never Tobacco Cessation:Counseling Given: Not Answered Alcohol Use Standard Drinks/Week Comments Not Currently [...] Orientation Straight 05/27/2022 2: 12 PM EST Last Filed Vital Signs Vital Sign Reading Time Taken Comments Blood Pressure 110/70 10/07/2024 10:00 AM EDT Pulse 70 10/07/2024 10:00 AM EDT Temperature 36.3 ??C (97.4 ??F) 10/07/2024 10:00 AM E DT Respiratory Rate 16 10/07/2024 10:00 AM EDT Oxygen Saturation 96% 04/13/2024 10:37 AM EDT Inhaled Oxygen Concentration - - Weight 118 kg (261 lb) 10/07/2024 10:00 AM EDT Height 182.9 cm (6') 10/07/2024 10:00 AM EDT Body Mass Index 35.4 10/07/2024 10:00 AM EDT Plan of Treatment Upcoming Encounters Date Type Department Care Team (Late st Contact Info) Description 01/06/2025 10:30 AM EDT Office Visit [facility] [address] [place] [address] Arlet Beltran MD [address] [place] [address] Health Maintenance Due Date Last Done Comments CT Colonography 1970 Colonoscopy 1970 Colorectal Cancer Screening 1970 FIT DNA/Cologuard 1970 FIT 1970 FOBT 1970 HIV Screening 1970 Sigmoidoscopy 1970 Diabetes: Foot Exam 1980 Alcohol/Substance Use Screening 1982 Hepatitis C Screening 1988 Hepatitis B Vaccines (1 of 3 - 19+ 3-dose series) 1989 Pneumococcal Vaccine: 50+ Years (2 of 2 - PCV) 09/08/2014 09/08/2013, 11/07/2010 Zoster Vaccines (1 of 2) 2020 COVID-19 Vaccine (4 - season) 2024 06/06/2022, 11/16/2020, 10/19/2020 Influenza Vaccine (#1) 2024 , 03/28/2023, 06/06/2022, Additional history exists Eye Exam 06/19/2024 06/19/2022, 09/2022, 06/19/2022, Additional history exists Diabetes: Urine Protein Screening 08/12/2024 08/12/2023, 10/29/2019 Depression Screening 12/29/2024 12/30/2023, 12/30/19 SDOH Screening 12/29/2024 12/30/2023 Diabetes: Hemoglobin A1C 01/06/2025 025, 12/30/2023, 08/12/2023, Additional history exists Tobacco Screening 04/13/2025 04/13/2024 DTaP/Tdap/Td Vaccines (3 - Td or Tdap) 05/31/2025 05/31/2015, 02/23/2013 Lipid Panel 10/07/2025 10/07/2024, 07/18, 12/24/2022, Additional history exists RSV Patients and Patients Aged 60 years or older (1 - 1-dose 75+ series) 2045 HIB Vaccines Aged Out No longer eligi [...] patient's age to complete this topic Meningococcal Vaccine Aged Out No inna jovany eligible based on patient's age to complete this topic RSV under 20 months Aged Out No longe r eligible based on patient's age to complete this topic Rotavirus Vaccines Aged Out No longer eligible based on patient's age to complete this topic Procedures Procedure Name Priority Date/Time Associated Diagnosis Comments LIPID PANEL, STANDARD Routine 10/07/2024 10:33 AM EDT Type 2 diabetes mellitus without complication, without long-term current use of insulin ([facility]) COMPREHENSIVE METABOLIC PANEL Routine 10/07/2024 10:33 AM EDT Type 2 diabetes mellitus without complication, without long-term current use of insulin ([facility]) HEMOGLOBIN A1C Routine 10/07/2024 10:33 AM EDT Type 2 diabetes mellitus without complication, without long-term current use of insulin ([facility]) METHADONE CONFIRM, ORAL FLUIDS (NON ORDERABLE) Routine 10/07/2024 12:00 AM EDT DRUG SCREEN 14 W/CONFIRMATION, ORAL FLUID Routine 10/07/2024 12:00 AM EDT residential (current) use of opiate analgesic MICROALBUMIN, RANDOM (W CREAT) Routine 08/12/2023 11:34 AM EST Type 2 diabetes mellitus without complication, without long-term current use of insulin ([facility]) from Last 3 Months or Most Recently Relevant to Health Maintenance Results * (ABNORMAL) Hemoglobin A1c (10/07/2024 10:33 AM EDT) Hemoglobin A1c 8.2(H) 4.8 - 5.6 % [facility] Comment: ? Prediabetes: 5.7 - 6.4 ? Diabetes: >6.4 ? Glycemic control for adults with diabetes: <7.0 Blood Venous blood specimen / Unknown 10/07/2024 10:33 AM EDT 10/07/2024 Narrative [facility] - 10/08/2024 12:05 AM EDT Performed at: ??01 - [facility] [address] ??[id number] Anesthesiologist Physician: Romelia Randolph MD, Phone: ??[phone] us Arlet Beltran MD LAB BLOOD ORDERABLES Final Resul t [facility] * (ABNORMAL) Lipid Panel, Standard (10/07/2024 10:33 AM EDT) Cholesterol, Total 120 100 - 199 mg/dL [facility] Triglycerides 185(H) 0 - 149 mg/dL [facility] HDL Cholesterol 31(L) >39 mg/dL [facility] 1 VLDL Cholesterol Esa 31 5 - 40 mg/dL [facility] LDL Chol Calc (NIH) 58 0 - 99 mg/dL [facility] 1 Blood Venous blood specimen / Unknown 10/07/2024 10:33 AM EDT 10/07/2024 Narrative [facility] 1 - 10/08/2024 12:05 AM EDT Performed at: ??01 - [facility] [address] ??[id number] Anesthesiologist Physician: Romelia Randolph MD, Phone: ??[phone] us Arlet Beltran MD LAB BLOOD ORDERABLES Final Resul t Performing Organization Address [facility]/ZIP Co de Phone Number [facility] * (ABNORMAL) Comprehensive metabolic panel (10/07/2024 10:33 AM EDT) Glucose 186(H) 70 - 99 mg/dL [facility] Urea Nitrogen (BUN) 27(H) 6 - 24 mg/dL [facility] 1 Creatinine, Serum 1.17 0.76 - 1.27 mg/dL [facility] 1 eGFR 74 >59 mL/min/1.7 3 [facility] 1 BUN/Creatinine Ratio 23(H) 9 - 20 [facility] 1 Sodium 139 134 - 144 mmol/L [facility] 1 Potassium 4.3 3.5 - 5.2 mmol/L [facility] 1 Chloride 93(L) 96 - 106 mmol/L [facility] 1 Anion Gap 18.0 10.0 - 18.0 mmol/L [facility] 1 Carbon Dioxide 28 20 - 29 mmol/L [facility] 1 Calcium 9.2 8.7 - 10.2 mg/dL [facility] Protein, Total 8.2 6.0 - 8.5 g/dL [facility] 1 Albumin 3.9 3.8 - 4.9 g/dL [facility] 1 Globulin 4.3 1.5 - 4.5 g/dL [facility] 1 Bilirubin, Total 0.5 0.0 - 1.2 mg/dL [facility] 1 Alkaline Phosphatase 88 44 - 121 IU/L [facility] 1 AST 18 0 - 40 IU/L [facility] 1 ALT 12 0 - 44 IU/L [facility] 1 Blood Venous blood specimen / Unknown 10/07/2024 10:33 AM EDT 10/07/2024 Narrative [facility] 1 - 10/08/2024 12:05 AM EDT Performed at: ??01 - [facility] [address] ??[id number] Anesthesiologist Physician: Romelia Randolph MD, Phone: ??[phone] Arlet Beltran MD LAB BLOOD ORDERABLES Final Resul t Performing Organization Address City/[facility]/ZIP Co de Phone Number [facility] * Methadone Confirmation, Oral Fluids (10/07/2024 12:00 AM EDT) Methadone Confirm, Oral Fluid 329.6 Cutoff=50. 0 ng/ml [facility] 1 Methadone Metabolite (EDDP) Confirm, Oral Fluid Negative Cutoff=50. 0 ng/ml [facility] 1 10/07/2024 10/07/2024 Comment:Oral Fluid Release t o Narrative [facility] 1 - 10/16/2024 10:49 AM EDT Performed at: ??01 - [facility] [address] [place] [address] ??[id number] Anesthesiologist Physician: Gaby Strauss [facility], Phone: ??[phone] Arlet Beltran MD HISTORICAL/NON ORDERABLE LABS Fi nal Result Performing Organization Address City/[facility] Co de Phone Number [facility] * Drug Screen 14 w/Confirmation, Oral Fluid (10/07/2024 12:00 AM EDT) Alcohol, Ethyl, Oral Fluid Negative Cutoff=0. 020 g/dl [facility] 1 Amphetamines Negative Cutoff=50 ng/ml [facility] 1 Benzodiazepines Negative Cutoff=20 ng/ml [facility] 1 Cocaine, oral fluid Negative Cutoff=20 ng/ml [facility] 1 Opiates, oral fluid Negative Cutoff=40 ng/ml [facility] 1 Phencyclidine, oral fluid Negative Cutoff=10 ng/ml [facility] 1 Marijuana, oral fluid Negative Cutoff=4 ng/ml [facility] 1 Oxycodone, oral fluid Negative Cutoff=40 ng/ml [facility] 1 Barbiturates, Oral Fluid Negative Cutoff=50 ng/ml [facility] 1 Methadone, Oral Fluid +POSITIVE+ Cutoff=50 ng/ml [facility] 1 Propoxyphene, Oral Fluid Negative Cutoff=40 ng/ml [facility] 1 Buprenorphine, Oral Fluid Negative Cutoff=5 ng/ml [facility] 1 Tramadol, Oral Fluid Negative Cutoff=50 ng/ml [facility] 1 Fentanyl, Oral Fluid Negative Cutoff=1 ng/ml [facility] Comment: This test was developed and its performance characteristics determined by [facility]. ??It has not been cleared or approved by the Food and Drug Administration. Oral Fluid (Oral Fluid) 10/07/2024 10/07/2024 Comment:Oral Fluid Release t o Narrative [facility] 1 - 10/16/2024 10:49 AM EDT Performed at: ??01 - [facility] [address] ??[id number] Anesthesiologist Physician: Gaby Strauss [facility], Phone: ??[phone] us Arlet Beltran MD LAB BODY FLUIDS AND STOOLS ORDER CLAUDE Final Result [facility] * Microalbumin, Random Urine w/Creatinine (08/12/2023 11:34 AM EST) Micro-Albumin <12.0 (<20) MG/L [facility] Comment: The urine microalbumin test is designed to monitor renal function. When screening for Bence Velasquez proteinuria, urine electrophoresis is recommended. Malb/Creat Ratio Unable to calculate (0-20) MG/GM [facility] Urine Creat For Micro Albumin 26.7 MG/DL [facility] Comment: Testing performed or reported by [facility], a Service of [facility], [address] [place] [id number] Bobby Pacheco MD, Field Artillery Officer [place]# [id number] Urine (Urine, Random) 08/12/2023 11:34 AM EST 08/12/2023 11:57 AM EST Chidi Ojeda NP LAB URINE ORDERABLES Final R esult [facility] [address] [place] [phone] from Last 3 Months or Most Recently Relevant to [place] [id number] [facility] [address] [place] [address] [address] [place], [place] [address] [place], [place] Care Teams Television Parts Tester Relationship Specialty Start Date End Date Arlet Beltran MD [address] [place] [id number] PCP - General Internal Medicine 08/15/23
--- OUTSIDE RECORDS SUMMARY | 2024-10-21 11:52 | XMS_ITS | Encounter Summary ---
Author Organization [employer] Address [address] [place] [address] [address] [place] [address] Care Team Providers Care Appliance Service Representative Name Role Phone Arlet Beltran MD Primary Care Provider [phone] Chidi Ojeda NP Primary Care Provider [phone] Arlet Beltran MD Primary Care Provider [phone] Reason for Visit * Reason Onset Date Comments Med Refill 03/31/2023 Encounter Details Date Type Department Care Team (Late st Contact Info) Description 03/31/2023 Refill [facility] [address] [place] [address] Arlet Beltran MD [address] [place] [address] Chronic pain after traumatic injury Social History [...] * Telephone Encounter - JENNIFER Hobbs - 03/31/2023 12:43 PM EDT REFILL QUED IN A SEPARATE TE documented in this encounter Plan of Treatment Upcoming Encounters Date Type Department Care Team (Late st Contact Info) Description 01/06/2025 10:30 AM EDT Office Visit [facility] [address] [place] [address] Arlet Beltran MD [address] [place] [address] documented as of this encounter Visit Diagnoses Diagnosis Chronic pain after traumatic injury documented in this encounter Care Teams Appliance Service Representative Relationship Specialty Start Date End Date Arlet Beltran MD [address] [place] [address] PCP - General Internal Medicine 04/14/23 08/03/23 Chidi Ojeda NP [address] [place] [id number] PCP - General Internal Medicine 08/04/23 08/14/23 Arlet Beltran MD [address] [place] [id number] PCP - General Internal Medicine 08/15/23 documented as of this encounter
--- OUTSIDE RECORDS SUMMARY | 2024-10-21 11:52 | XMS_ITS | Encounter Summary ---
Author Organization [employer] Address [address] [facility] [address]t [place] [address] Care Team Providers Care Direct Care Specialist Name Role Phone Arlet Beltran MD Primary Care Provider [phone] Reason for Visit * Reason Onset Date Comments Med Refill 10/18/2024 Encounter Details Date Type Department Care Team (Late st Contact Info) Description 10/18/2024 Refill [facility][1] MEDICAL [address] [place] [address] Arlet Beltran MD [address] [place] [address] Congestive heart failure, unspecified HF chronicity, unspecified heart failure type (CMS/HCC); Diarrhea, unspecified type Social History Tobacco Use Types Packs/Day Years [...] Description 01/06/2025 10:30 AM EDT Office Visit [facility][1] MEDICAL [address] [place] [address] Arlet Beltran MD [address] [place] [address] documented as of this encounter Visit Diagnoses Diagnosis Congestive heart failure, unspecified HF chronicity, unspecified heart failure type (CMS/HCC) Diarrhea, unspecified type documented in this encounter Care Teams Direct Care Specialist Relationship Specialty Start Date End Date Arlet Beltran MD [address] [place] [address] PCP - General Internal Medicine 08/15/23 documented as of this encounter
== END 2024-10-21 10:29 | disposition home or self-care (01) ==
LOC: HO.XRAY 10:28
PROVIDERS: PCP Internal Medicine; Visit Provider Internal Medicine
DX: M79.89 Other specified soft tissue disorders (principal)
CPT/HCPCS: 73130

== ENCOUNTER → 2024-10-21 10:50 | Outpatient (BNV) | payer MEDICARE, MEDICAID, SELFPAY | PROVIDERS: PCP Internal Medicine; Visit Provider Radiology Diagnostic Radiology | DX: M79.89 Other specified soft tissue disorders (principal) | CPT/HCPCS: 73130 ==

== ENCOUNTER → 2025-02-11 09:59 | Outpatient (REF) | payer MEDICARE, MEDICAID, SELFPAY ==
--- NOTE | ~2025-02-11 | NM_ITS ---
EXAMINATION: NM BONE SCAN WHOLE BODY HISTORY: [id number] FX RT HAND, ENCOUNTER FOR FX WITH DELAYED HEALING. TECHNIQUE: A total body bone scan was performed following the intravenous administration of 40 mCi technetium 99m-MDP. COMPARISON: Correlation is made with plain films of the right hand dated 10/21/2024. FINDINGS: There is intense uptake involving the mid to distal right middle finger, at the site of the previously described fracture. There is nonspecific activity at the bilateral knees, ankles, and shoulders which may be degenerative in nature. Uptake in the left wrist may also be degenerative in nature. The remainder the visualized osseous structures demonstrate a normal distribution of activity. There is normal bilateral renal uptake. NM/NM bone scan whole body IMPRESSION: Increased uptake involving the mid to distal right middle finger at the site of the previously seen fracture. Additional areas of increased activity described above may be degenerative in nature. Electronically signed by: Anson Portillo MD 02/11/2025 02:19 PM EDT
--- OUTSIDE RECORDS SUMMARY | 2025-02-11 10:44 | XMS_ITS | Clinical Summary ---
Author Organization [facility] Address [address] [place] [address] 7t [place] [address] Care Team Providers Care Lime Supervisor Name Role Phone Arlet Beltran MD Primary Care Provider [phone] Allergies Active Allergy Reactions Criticality Noted Date Comments Cephalexin 05/15/2022 Other reaction(s): Unknown Ciprofloxacin 05/15/2022 Other reaction(s): Unknown Cyproheptadine 05/15/2022 Other reaction(s): Unknown Metronidazole 05/15/2022 Other reaction(s): Unknown Medications lisinopril 10 MG tablet 1 tablet in the morning. 06/05/20 21 Active magnesium 250 MG tablet Take 1 capsule by mouth 4 times daily. Active metFORMIN XR (Glucophage-XR ) 500 MG 24 hr tablet TAKE 4 TABLETS (2,000 MG) BY MOUTH WITH EVENING MEAL. DO NOT CRUSH, CHEW, OR SPLIT. 360 tablet 3 03/08/20 24 025 Active Januvia 100 MG tabletIndicati ons:Hyperglyce ana rosa due to diabetes mellitus (CMS/HCC) TAKE 1 TABLET BY MOUTH EVERY DAY IN THE MORNING 90 tablet 3 07/07/19 25 Active atorvastatin (Lipitor) 80 MG tablet [...] day. 90 tablet 3 09/24/19 25 Active furosemide (Lasix) 40 MG tabletIndicati ons:Congestive heart failure, unspecified HF chronicity, unspecified heart failure type (CMS/HCC) TAKE 1 TABLET BY MOUTH EVERY DAY FOR 90 DAYS 90 tablet 10/20/19 25 Active potassium chloride CR (Klor-Con M20) 20 MEQ ER tablet TAKE 1 TABLET BY MOUTH EVERY DAY 90 tablet 3 11/05/19 25 Active ALPRAZolam (Xanax) 1 MG tabletIndicati ons:Panic attacks Take 1 tablet (1 mg) by mouth 2 times daily. 56 tablet 3 12/15/19 25 Active pregabalin (Lyrica) 100 MG capsuleIndicat ions:Chronic pain after traumatic injury Take 1 capsule (100 mg) by mouth 2 times daily. 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 90 tablet 3 12/15/19 25 Active Additional Information Patient taking differently:25 mg Oral 2 times daily,Patient is taking 1/2 in the a.m. and 1/2 in the p.m., Reported on 01/06/2025 Tirzepatide (Mounjaro) 2.5 MG/0.5ML solution auto-injectorI ndications:Typ e 2 diabetes mellitus without complication, without long-term current use of insulin ([facility]) Inject 2.5 mg under the skin 1 (one) time per week. 2 mL 2 01/07/20 25 Active methadone (Dolophine) 10 MG tabletIndicati ons:Chronic bilateral low back pain with bilateral sciatica Take 2 tablets (20 mg) by mouth every 8 (eight) hours for 28 days. DX: FOR CHRONIC PAIN 168 tablet 02/08/20 25 025 Active loperamide (Imodium) 2 MG capsuleIndicat ions:Diarrhea, unspecified type TAKE 1 CAPSULE BY MOUTH 4 TIMES A DAY NEEDED for 30 120 capsule 02/08/20 25 Active mupirocin (Bactroban) 2 % ointment Apply topically 2 times daily for 14 days. 30 g 1 07/24/20 25 025 methadone (Dolophine) 10 MG tabletIndicati ons:Chronic bilateral low back pain with bilateral sciatica Take 2 tablets (20 mg) by mouth every 8 (eight) hours for 28 days. DX: FOR CHRONIC PAIN 168 tablet 01/11/20 25 025 Discontinued(R eorder (will not trigger notification to Pharmacy)) loperamide (Imodium) 2 MG capsuleIndicat ions:Diarrhea, unspecified type TAKE 1 CAPSULE BY MOUTH 4 TIMES A DAY NEEDED for 30 120 capsule 01/11/20 25 025 Discontinued(R eorder (will not trigger [...] Encounters Date Type Department Care Team Description 02/06/[address] [address] Arlet Beltran MD Chronic bilateral low back pain with bilateral sciatica; Diarrhea, unspecified type 01/10/[address] [address] Arlet Beltran MD Chronic bilateral low back pain with bilateral sciatica; Diarrhea, unspecified type 01/10/[address] [address] Arlet Beltran MD 01/10/[address] [address] Arlet Beltran MD Chronic bilateral low back pain with bilateral sciatica 01/06/2025 10:30 AM EDT Office Visit [address] [address] Arlet Beltran MD Pathological fracture of phalanx of finger of right hand with delayed healing, unspecified pathological cause, subsequent encounter (Primary Dx); Type 2 diabetes mellitus without complication, without long-term current use of insulin ([facility]) 01/02/2025 Travel 12/12/[address] [facility] MEDICAL [address] [place] [address] [facility] Atherosclerotic heart disease of [place] coronary artery without angina pectoris 12/12/2024 Refill [facility] MEDICAL [address] [place] [address] Arlet Beltran MD Panic attacks; Chronic pain after traumatic injury; Chronic bilateral low back pain with bilateral sciatica; Diarrhea, unspecified type 11/15/2024 Refill [facility] MEDICAL [address] [place] [address] Arlet Beltran MD Diarrhea, unspecified type from Last 3 Months Immunizations Immunization Administration Dates Next Due INFLUENZA INJECTABLE QUADRIV [...] Sign Reading Time Taken Comments Blood Pressure 105/67 01/06/2025 10:44 AM EDT Pulse 65 01/06/2025 10:44 AM EDT Temperature 36.3 C (97.4 F) 01/06/2025 10:44 AM EDT Respiratory Rate 16 01/06/2025 10:44 AM EDT Oxygen Saturation 96% 04/13/2024 10:37 AM EDT Inhaled Oxygen Concentration - - Weight 118 kg (261 lb) 10/07/2024 10:00 AM EDT Height 182.9 cm (6') 01/06/2025 10:44 AM EDT Body Mass Index 35.4 10/07/2024 10:00 AM EDT Plan of Treatment Upcoming Encounters Date Type Department Care Team (Late st Contact Info) Description 04/12/2025 11:00 AM EDT Office Visit [facility] MED[facility] [address] [place] [address] Arlet Beltran MD [address] [place] [address] Health Maintenance Due Date Last Done Comments [...] (4 - season) 2024 06/06/2022, 11/16/2020, 10/19/2020 Eye Exam 06/19/2024 06/19/2022, 09/2022, 06/19/2022, Additional history exists Diabetes: Urine Protein Screening 08/12/2024 08/12/2023, 10/29/2019 Depression Screening 12/29/2024 12/30/2023, 12/30/19 24 SDOH Screening 12/29/2024 12/30/2023 Influenza Vaccine (#1) 2025 , 03/28/2023, 06/06/2022, Additional history exists DTaP/Tdap/Td Vaccines (3 - Td or Tdap) 05/31/2025 05/31/2015, 02/23/2013 Diabetes: Hemoglobin A1C 07/09/2025 025, 10/07/2024, 12/30/2023, Additional history exists Disability Screening 07/19/2025 07/19/2024 Lipid Panel 10/07/2025 10/07/2024, 07/18, 12/24/2022, Additional history exists Tobacco Screening 01/06/2026 01/06/2025 RSV Patients and Patients Aged 60 years [...] Procedure Name Priority Date/Time Associated Diagnosis Comments CBC WITH AUTO DIFFERENTIAL Routine 01/06/2025 11:29 AM EDT Type 2 diabetes mellitus without complication, without long-term current use of insulin ([facility]) HEMOGLOBIN A1C Routine 01/06/2025 11:29 AM EDT Type 2 diabetes mellitus without complication, without long-term current use of insulin ([facility]) COMPREHENSIVE METABOLIC PANEL Routine 01/06/2025 11:29 AM EDT Pathological fracture of phalanx of finger of right hand with delayed healing, unspecified pathological cause, subsequent encounter LIPID PANEL, STANDARD Routine 10/07/2024 10:33 AM EDT Type 2 diabetes mellitus without complication, without long-term current use of insulin (CMS/[facility]) MICROALBUMIN, RANDOM (W CREAT) Routine 08/12/2023 11:34 AM EST Type 2 diabetes mellitus without complication, without long-term current use of insulin (CMS/[facility]) from Last 3 Months or Most Recently Relevant to Health Maintenance Results * (ABNORMAL) CBC auto differential (01/06/2025 11:29 AM EDT) White Blood Cell Count 6.9 3.4 - 10.8 x10E3/uL [facility] Red Blood Cell Count 3.75(L) 4.14 - 5.80 x10E6/uL [facility] 1 Hemoglobin 10.2(L) 13.0 - 17.7 g/dL [facility] 1 Hematocrit 33.0(L) 37.5 - 51.0 % [facility] 1 MCV 88 79 - 97 fL [facility] 1 MCH 27.2 26.6 - 33.0 pg [facility] 1 MCHC 30.9(L) 31.5 - 35.7 g/dL [facility] 1 RDW 16.9(H) 11.6 - 15.4 % [facility] 1 Platelet Count 261 150 - 450 x10E3/uL [facility] 1 Neutrophils 61 Not Estab. % [facility] 1 Lymphocytes 27 Not Estab. % [facility] 1 Monocytes 7 Not Estab. % [facility] 1 Eosinophils 4 Not Estab. % [facility] 1 Basophils 1 Not Estab. % [facility] 1 Absolute Neutrophils 4.2 1.4 - 7.0 x10E3/uL [facility] 1 Absolute Lymphocytes 1.8 0.7 - 3.1 x10E3/uL [facility] 1 Absolute Monocytes 0.5 0.1 - 0.9 x10E3/uL [facility] 1 Absolute Eosinophils 0.2 0.0 - 0.4 x10E3/uL [facility] 1 Absolute Basophils 0.1 0.0 - 0.2 x10E3/uL [facility] 1 Immature Granulocytes 0 Not Estab. % [facility] 1 Immature Grans (Abs) 0.0 0.0 - 0.1 x10E3/uL [facility] 1 Blood Venous blood specimen / Unknown 01/06/2025 11:29 AM EDT 01/06/2025 Narrative Resulting Agency Comment Performed at: [facility] [address] [id number] President Sales And Marketing: Romelia Randolph MD, Phone: [phone] us Arlet Beltran MD LAB BLOOD ORDERABLES Final Resul t [facility] 1 * (ABNORMAL) Hemoglobin A1c (01/06/2025 11:29 AM EDT) Hemoglobin A1c 6.9(H) 4.8 - 5.6 % [facility] 1 Comment: Prediabetes: 5.7 - 6.4 Diabetes: >6.4 Glycemic control for adults with diabetes: <7.0 Blood Venous blood specimen / Unknown 01/06/2025 11:29 AM EDT 01/06/2025 Narrative Resulting Agency Comment Performed at: 01 - [facility] [place] [address] [place], [place] [id number] President Sales And Marketing: Romelia Randolph MD, Phone: [phone] Arlet Beltran MD LAB BLOOD ORDERABLES Final Resul t [facility] * (ABNORMAL) Comprehensive metabolic panel (01/06/2025 11:29 AM EDT) Glucose 117(H) 70 - 99 mg/dL [facility] 1 Urea Nitrogen (BUN) 28(H) 6 - 24 mg/dL [facility] 1 Creatinine, Serum 1.20 0.76 - 1.27 mg/dL [facility] 1 eGFR 72 >59 mL/min/1.7 3 [facility] 1 BUN/Creatinine Ratio 23(H) 9 - 20 [facility] 1 Sodium 138 134 - 144 mmol/L [facility] 1 Potassium 4.6 3.5 - 5.2 mmol/L [facility] 1 Chloride 94(L) 96 - 106 mmol/L [facility] 1 Anion Gap 16.0 10.0 - 18.0 mmol/L [facility] 1 Carbon Dioxide 28 20 - 29 mmol/L [facility] 1 Calcium 9.9 8.7 - 10.2 mg/dL [facility] 1 Protein, Total 8.3 6.0 - 8.5 g/dL [facility] 1 Albumin 4.3 3.8 - 4.9 g/dL [facility] 1 Globulin 4.0 1.5 - 4.5 g/dL [facility] 1 Bilirubin, Total 0.6 0.0 - 1.2 mg/dL [facility] 1 Alkaline Phosphatase 77 44 - 121 IU/L [facility] 1 AST 21 0 - 40 IU/L [facility] 1 ALT 16 0 - 44 IU/L [facility] 1 Blood Venous blood specimen / Unknown 01/06/2025 11:29 AM EDT 01/06/2025 Narrative Resulting Agency Comment Performed at: 01 - [facility] [place] [address] [place], [place] [id number] President Sales And Marketing: Romelia Randolph MD, Phone: [phone] Arlet Beltran MD LAB BLOOD ORDERABLES Final Resul t Performing Organization Address [facility] de Phone Number [facility] 1 * (ABNORMAL) Lipid Panel, Standard [...] - 10/08/2024 12:05 AM EDT Performed at: 01 - [facility] [id number] President Sales And Marketing: Romelia Randolph MD, Phone: [phone] us Arlet Beltran MD LAB BLOOD ORDERABLES Final Resul t Performing Organization Address [facility] de Phone Number [facility] 1 * Microalbumin, Random Urine w/Creatinine (08/12/2023 11:34 AM EST) Micro-Albumin <12.0 (<20) MG/L [facility] Comment: The urine microalbumin test is designed to monitor renal function. When screening for Bence Velasquez proteinuria, urine electrophoresis is recommended. Malb/Creat Ratio Unable to calculate (0-20) MG/GM [facility] Urine Creat For Micro Albumin 26.7 MG/DL [facility] Comment: Testing performed or reported by [facility], a Service of [facility], [address] [place] [address] Bobby Pacheco MD, Scales Inspector [facility]# [id number] Urine (Urine, Random) 08/12/2023 11:34 AM EST 08/12/2023 11:57 AM EST us Chidi Ojeda NP LAB URINE ORDERABLES Final R esult [facility] [address] [place] [address] from Last 3 Months or Most Recently Relevant to Health Maintenance Insurance [facility] [address] [place] [address] [place] [address] [place] [address] [place] Care Teams Lime Supervisor Relationship Specialty Start Date End Date Arlet Beltran MD [address] [place] [address] PCP - General Internal Medicine 08/15/23
--- OUTSIDE RECORDS SUMMARY | 2025-02-11 10:44 | XMS_ITS | Clinical Summary ---
Author Organization [facility] Address [address] [place] [address] Care Team Providers Care Content Production Specialist Name Role Phone Unavailable Primary Care Provider [...] Atopic dermatitis 05/27/2022 CHF (congestive heart failure) ([facility]) 1 07/28/2021 Chronic pain after traumatic injury 05/27/2022 Depression 05/27/2022 Entrapment of right ulnar nerve 05/27/2022 Eosinophilia 05/27/2022 Essential (primary) hypertension 05/27/2022 Gastro-esophageal reflux disease without esophag itis 05/27/2022 Gout of right foot 05/27/2022 H/O mitral valve replacement with mechanical christal ve 05/27/2022 History of partial colectomy 05/27/2022 Hx of CABG 05/27/2022 Hyperglycemia due to diabetes mellitus ([facility]) 05/27/2022 Hyperlipidemia 05/27/2022 Hypomagnesemia 05/27/2022 [...] - 19 + 3-dose series) 1989 Imm-Pneumococcal 50+ (2 of 2 - PCV) 09/08/2014 09/08/2013, 11/07/2010 CT Colonography 2015 Colonoscopy 2015 Colorectal Cancer Screening 2015 FIT/gFOBT 2015 Fecal DNA 2015 Flexible Sigmoidoscopy 2015 Imm-Zoster, Recombinant (1 of 2) 2020 Hemoglobin A1c 03/26/2023 12/24/2022, 05/17, 10/29/2019, Additional history exists [id number]-50 ( season) 2024 06/06/2022, 11/16/2020, 10/19/2020 Alcohol and Drug Screen 06/16/2024 Imm-Influenza (#1) 2025 03/28/2023, 1 08/06/2020, 03/06/2021, Additional history exists Imm-DTaP/Tdap/Td (3 - Td or Tdap) 05/31/2025 015, 02/23/2013 Insurance [place]
--- OUTSIDE RECORDS SUMMARY | 2025-02-11 10:44 | XMS_ITS | Encounter Summary ---
Author Organization [employer] [facility] Address [address] [place] [address] 7[address] [place] [address] Care Team Providers Care Water Reclamation Systems Operator Name Role Phone Arlet Beltran MD Primary Care Provider [phone] Chidi Ojeda NP Primary Care Provider [phone] Arlet Beltran MD Primary Care Provider [phone] Encounter Details Date Type Department Care Team [...] Description 04/12/2025 11:00 AM EDT Office Visit [facility] MEDICAL [address] [place] [address] Arlet Beltran MD [address] [place] [address] documented as of this encounter Visit Diagnoses Not on filedocumented in this encounter Care Teams Water Reclamation Systems Operator Relationship Specialty Start Date End Date Arlet Beltran MD [address] [place] [address] PCP - General Internal Medicine 04/14/23 08/03/23 Chidi Ojeda NP [address] [place] [address] PCP - General Internal Medicine 08/04/23 08/14/23 Arlet Beltran MD [address] [place] [address] PCP - General Internal Medicine 08/15/23 documented as of this encounter
--- OUTSIDE RECORDS SUMMARY | 2025-02-11 10:44 | XMS_ITS | Encounter Summary ---
Author Organization [employer] Address [address] [place] [address] 7t [place] [address] Care Team Providers Care Construction Driller Name Role Phone Arlet Beltran MD Primary Care Provider [phone] Chidi Ojeda NP Primary Care Provider [phone] Arlet Beltran MD Primary Care Provider [phone] Reason for Visit * Reason Onset Date Comments Med Refill 05/30/2023 Encounter Details Date Type Department Care Team (Late st Contact Info) Description 05/30/2023 Refill [facility] MEDICAL [address] [place] [address] Arlet Beltran MD [address] [place] [address] Panic attacks; Chronic pain after traumatic injury [...] Description 04/12/2025 11:00 AM EDT Office Visit [facility] MEDICAL [address] [place] [address] Arlet Beltran MD [address] [place] [address] documented as of this encounter Visit Diagnoses Diagnosis Panic attacks Panic disorder without agoraphobia Chronic pain after traumatic injury documented in this encounter Care Teams Construction Driller Relationship Specialty Start Date End Date Arlet Beltran MD [address] [place] [address] PCP - General Internal Medicine 04/14/23 08/03/23 Chidi Oejda NP [address] [place] [address] PCP - General Internal Medicine 08/04/23 08/14/23 Arlet Beltran MD [address] [place] [address] PCP - General Internal Medicine 08/15/23 documented as of this encounter
--- OUTSIDE RECORDS SUMMARY | 2025-02-11 10:44 | XMS_ITS | Encounter Summary ---
Author Organization [facility] [facility] Address [address] [place] [address] [address] [place] [address] Care Team Providers Care Control Room Technician Name Role Phone Arlet Beltran MD Primary Care Provider [phone] Reason for Visit * Reason Onset Date Comments Med Refill 10/23/2023 Encounter Details Date Type Department Care Team (Late st Contact Info) Description 10/23/2023 Refill [facility] MEDICAL [address] [place] [address] Arlet Beltran MD [address] [place] [address] Chronic bilateral low back pain with bilateral [...] Description 04/12/2025 11:00 AM EDT Office Visit [address] [address] Arlet Beltran MD [address] [place] [address] documented as of this encounter Visit Diagnoses Diagnosis Chronic bilateral low back pain with bilateral sciatica documented in this encounter Care Teams Control Room Technician Relationship Specialty Start Date End Date Arlet Beltran MD [address] [place] [address] PCP - General Internal Medicine 08/15/23 documented as of this encounter
--- OUTSIDE RECORDS SUMMARY | 2025-02-11 10:44 | XMS_ITS | Encounter Summary ---
Author Organization [email or web address] [facility] Address [address] [place] [address] 7t [place] [address] Care Team Providers Care Retail Analytics Manager Name Role Phone Arlet Beltran MD Primary Care Provider [phone] Chidi Ojeda NP Primary Care Provider [phone] Arlet Beltran MD Primary Care Provider [phone] Encounter Details Date Type Department Care Team (Late st Contact Info) Description 05/15/2022 Abstract [facility] [address] [place] [address] Arlet Beltran MD [address] [place] [address] Social History Tobacco Use Types Packs/Day Years [...] Description 04/12/2025 11:00 AM EDT Office Visit [facility] [address] [place] [address] Arlet Beltran MD [address] [place] [address] documented as of this encounter Visit Diagnoses Not on filedocumented in this encounter Care Teams Retail Analytics Manager Relationship Specialty Start Date End Date Arlet Beltran MD [address] [place] [address] PCP - General Internal Medicine 04/14/23 08/03/23 Chidi Ojeda NP [address] [place] [address] PCP - General Internal Medicine 08/04/23 08/14/23 Arlet Beltran MD [address] [place] [address] PCP - General Internal Medicine 08/15/23 documented as of this encounter
--- OUTSIDE RECORDS SUMMARY | 2025-02-11 10:44 | XMS_ITS | Encounter Summary ---
Author Organization [facility] Address [address] [place] [address] 7t [place] [address] Care Team Providers Care Video Effects Editor Name Role Phone Arlet Beltran MD Primary Care Provider [phone] Chidi Ojeda NP Primary Care Provider [phone] Arlet Beltran MD Primary Care Provider [phone] Reason for Visit * Reason Onset Date Comments Med Refill 05/22/2023 Encounter Details Date Type Department Care Team (Late st Contact Info) Description 05/22/[address] [facility] MEDICAL [address] [place] [address] Arlet Beltran MD [address] [place] [address] Chronic pain after traumatic injury Social History [...] Description 04/12/2025 11:00 AM EDT Office Visit [facility] MEDICAL [address] [place] [address] Arlet Beltran MD [address] [place] [address] documented as of this encounter Visit Diagnoses Diagnosis Chronic pain after traumatic injury documented in this encounter Care Teams Video Effects Editor Relationship Specialty Start Date End Date Arlet Beltran MD [address] [place] [address] PCP - General Internal Medicine 04/14/23 08/03/23 Chidi Ojeda NP [address] [place] [address] PCP - General Internal Medicine 08/04/23 08/14/23 Arlet Beltran MD [address] [place] [address] PCP - General Internal Medicine 08/15/23 documented as of this encounter
--- OUTSIDE RECORDS SUMMARY | 2025-02-11 10:44 | XMS_ITS | Encounter Summary ---
Author Organization [employer] Address [address] [facility] 7t [place] [address] Care Team Providers Care Music Researcher Name Role Phone Arlet Beltran MD Primary Care Provider [phone] Reason for Visit * Reason Onset Date Comments Med Refill 02/06/2025 Encounter Details Date Type Department Care Team (Late st Contact Info) Description 02/06/2025 Refill [facility] MEDICAL [address] [place] [address] Arlet Beltran MD [address] [place] [address] Chronic bilateral low back pain with bilateral sciatica; Diarrhea, unspecified type Social History Tobacco Use [...] * Telephone Encounter - JENNIFER Hobbs - 02/07/2025 12:37 PM EDT [facility] Last fill Date: 01/10/25 #[id number] d [facility] sold Date: 01/12 Last OV: 01/06/25 Next OV: 04/12/25 Last UTOX: 10/07/24 CSA Date: 01/06/25 DNF Date: refill due 02/09 documented in this encounter Plan of Treatment Upcoming Encounters Date Type Department Care Team (Late st Contact Info) Description 04/12/2025 11:00 AM EDT Office Visit [facility] MEDICAL [address] [place] [address] Arlet Beltran MD [address] [place] [address] documented as of this encounter Visit Diagnoses Diagnosis Chronic bilateral low back pain with bilateral sciatica Diarrhea, unspecified type documented in this encounter Care Teams Music Researcher Relationship Specialty Start Date End Date Arlet Beltran MD [address] [place] [address] PCP - General Internal Medicine 08/15/23 documented as of this encounter
--- OUTSIDE RECORDS SUMMARY | 2025-02-11 10:44 | XMS_ITS | Clinical Summary ---
Author Organization [address] [place] [address] Address [address] [place] [address] Phone Care Team Providers Care Die Repairer Stamping Name Role Phone Arlet Beltran MD Primary Care Provider [phone] Allergies Active Allergy Reactions Criticality Noted Date [...] warfarin (COUMADIN) 2 mg tablet Managed by [facility]. Active metFORMIN XR (GLUCOPHAGE-XR) [...] in the past. CHF (congestive heart failure) ([facility] V24, [facility] V28) 08/12/2023 Overview (04/20/2024): 53-year-old man with [...] 2) 2020 Colorectal Cancer Screening: Colonoscopy 05/19/2022 HIV Screening 05/19/2022 Hepatitis C Screening 05/19/2022 Medicare Annual Wellness Visit 05/19/2022 Social Influencers of Health Screening 05/19/2022 COVID-19 Vaccine ( season) 2024 06/06/2022, 11/16/2020, 10/19/2020 Depression Screening 06/16/2024 Diabetes: Blood Sugar Control Test (HGBA1C) 07/16/2024 12/30/2023, 08/12/2023 Diabetes: Annual Urine Albumin-Creatinine Ratio (uACR) 08/12/2024 08/12/2023 Diabetes: Annual GFR (Glomerular Filtration Rate) 08/12/2024 08/12/2023 Hypertension/CHF/CAD Annual BMP Blood Test 08/12/2024 08/12/2023 Influenza Vaccine (#1) 2025 , 03/28/2023, 06/06/2022, Additional history exists DTaP,Tdap,and Td Vaccines (3 - Td or Tdap) 05/31/2025 05/31/2015, 02/23/2013 Cholesterol Screening (Lipid Panel) 08/12/2028 08/12/2023, 08/12/2023 MMR Vaccines Aged Out 09/08/2014 No longer eligi ble based on patient's age to complete this topic HIB Vaccines Aged Out No longer eligi [...] Results * Urine Albumin Creatinine Ratio (08/12/2023) Urine Albumin Creatinine Ratio Abstracted Result [facility] Provider HEALTH MAINTENANCE Final Result * Annual BMP Blood Test (08/12/2023) Annual BMP Blood Test Abstracted [facility] Provider HEALTH MAINTENANCE Final Result * Hemoglobin A1c (08/12/2023) Pathologist [facility] Hemoglobin A1C 0.0 % Comment:No interpretation, A bstracted Blood Venous blood specimen / Unknown Result [facility] Provider LAB BLOOD ORDERABLES Michaela l Result * Lipid panel (08/12/2023) Triglycerides 0 mg/dL Comment:No interpretation, A bstracted Cholesterol 0 mg/dL Comment:No interpretation, A bstracted HDL 0 mg/dL Comment:No interpretation, A bstracted LDL Cholesterol 0 mg/dL Comment:No interpretation, A bstracted Blood Venous blood specimen / Unknown Result [facility] Provider LAB BLOOD ORDERABLES Michaela l Result from Last 3 Months or Most Recently Relevant to Health Maintenance Insurance MEDICARE MEDICAID - [place] Care Teams Die Repairer Stamping Relationship Specialty Start Date End Date Arlet Beltran MD [address] [place] [address] PCP - General 08/25/13
--- OUTSIDE RECORDS SUMMARY | 2025-02-11 10:44 | XMS_ITS | Encounter Summary ---
Author Organization [employer] [facility] Address [address] [place] [address] 7[address] [place] [address] Care Team Providers Care Angledozer Operator Name Role Phone Arlet Beltran MD Primary Care Provider [phone] Chidi Ojeda NP Primary Care Provider [phone] Arlet Beltran MD Primary Care Provider [phone] Encounter Details Date Type Department Care Team (Late st Contact Info) Description 05/28/2022 Orders Only [facility] MEDICAL [address] [place] [address] Gricel La [place] Social History Tobacco Use [...] Description 04/12/2025 11:00 AM EDT Office Visit [facility] [address] [place] [address] Arlet Beltran MD [address] [place] [address] documented as of this encounter Procedures Procedure [...] lite in Saliva by Confirmatory method POSITIVE(A) [facility] Comment: Reference range: Cutoff EQ 10 (NOTE) Confirmation performed by Mass Spectrometry EDDP NEGATIVE [facility] Comment:Reference range: Cut off EQ 25 Methadone, Oral Fluid POSITIVE(A) [facility] Methadone 71 [facility] Comment: Reference range: Cutoff EQ 25 Unit: ng/mL Testing performed or reported by [facility], a Service of [facility], [address] [place] [address] Bobby Pacheco MD, Mop Man CLIA# [id number] 03/28/2023 11:3 2 AM EDT 03/28/2023 7:28 PM EDT Arlet Beltran MD LAB BODY FLUIDS AND STOOLS ORDER CLAUDE Final Result [facility] [address] [place] [id number] * (ABNORMAL) TSH (06/06/2022 9:40 AM EST) TSH 5.61(H) (0.4-4.2) uIU/mL [facility] Comment: Testing performed or reported by [facility], a Service of [facility], [address] [place] [address] Elias Liao MD, Mop Man CLIA# [id number] 06/06/2022 9:40 AM EST 06/06/2022 9:46 AM EST Arlet Beltran MD LAB BLOOD ORDERABLES Final Resul t Performing Organization Address [facility]/ZIP Co de Phone Number [facility] [address] [place] [address] * (ABNORMAL) Lipid Panel, Standard (06/06/2022 9:40 AM EST) Cholesterol, Total 134 (<200) MG/DL [facility] Triglyceride (mg/dL) in Serum/Plasma 494(H) (<150) MG/DL [facility] HDL Cholesterol 25(L) (>39) MG/DL [facility] LDL Cholesterol, Calculated 10 (0-130) MG/DL [facility] Non HDL Chol. (LDL+VLDL) 109 (<160) MG/DL [facility] Comment: Testing performed or reported by [facility], a Service of [facility], [address] [place] [address] Elias Liao MD, Mop Man [facility]# [id number] 06/06/2022 9:40 AM EST 06/06/2022 9:46 AM EST Arlet Beltran MD LAB BLOOD ORDERABLES Final Resul t Performing Organization Address [facility] Co de Phone Number [address] [address] * (ABNORMAL) Comprehensive Metabolic Panel (06/06/2022 9:40 AM EST) Glucose 343(H) (70-99) MG/DL [facility] BUN 38(H) (6-20) MG/DL [facility] Creatinine, Serum 1.1 (0.7-1.2) MG/DL [facility] Sodium 135 (133-145) MMOL/L [facility] Potassium 4.2 (3.6-5.2) MMOL/L [facility] Chloride 89(L) (98-107) MMOL/L [facility] Bicarbonate 29 (22-29) MMOL/L [facility] Anion Gap 17 (4-17) [facility] Albumin 4.3 (3.4-4.8) GM/DL [facility] Calcium 9.5 (8.6-10.5) MG/DL [facility] Bilirubin, Total 0.6 (0-1.2) MG/DL [facility] Total Protein 8.2 (6.2-8.2) GM/DL [facility] Albumin/Globulin Ratio 1.1 [facility] AST 26 (0-40) U/L [facility] Alkaline Phosphatase 77 (40-129) U/L [facility] ALT (SGPT) 17 (0-41) U/L [facility] eGFR Creatinine 83 ML/MIN/1.7 3 M2 [facility] Comment: Creatinine based estimated glomerular filtration (eGFR) in adults is calculated using the National Kid[employer] recommended 2020 CKD-EPI equation. Estimates GFR from serum creatinine, age and sex. Testing performed or reported by [facility], a Service of [facility], [address] [place] [address] Elias Liao MD, Mop Man [facility]# [id number] 06/06/2022 9:40 AM EST 06/06/2022 9:46 AM EST us Arlet Beltran MD LAB BLOOD ORDERABLES Final Resul t [address] [address] * (ABNORMAL) CBC (06/06/2022 9:40 AM EST) WBC 6.6 (4.0-11.0) K/MM3 [facility] RBC 4.20(L) (4.70-6.10 ) M/MM3 [facility] HGB 11.2(L) (13.7-17.1 ) GM/DL [facility] HCT 36.6(L) (40.5-50.0 ) % [facility] MCV 87.1 (80.0-94.0 ) FL [facility] MCH 26.7(L) (27.0-34.0 ) PG [facility] McHC 30.6(L) (33.0-37.0 ) g/dL [facility] PLT 267 (150-460) K/MM3 [facility] RDW-SD 47.7(H) (<47.0) FL [facility] MPV 12.3 (9.4-12.4) FL [facility] Automated NRBC 0.0 #/100 WBC'S [facility] ABS NRBC 0.0 K/MM3 [facility] Comment: Testing performed or reported by [facility], a Service of [facility], [address] [place] [address] Elias Liao MD, Mop Man [facility]# [id number] 06/06/2022 9:40 AM EST 06/06/2022 9:46 AM EST us rAlet Beltran MD LAB BLOOD ORDERABLES Final Resul t [facility] [address] [place] [address] documented in this encounter Visit Diagnoses Not on filedocumented in this encounter Care Teams Angledozer Operator Relationship Specialty Start Date End Date Arlet Beltran MD [address] [place] [address] PCP - General Internal Medicine 04/14/23 08/03/23 Chidi Ojeda NP [address] [place] [address] PCP - General Internal Medicine 08/04/23 08/14/23 Arlet Beltran MD [address] [place] [address] PCP - General Internal Medicine 08/15/23 documented as of this encounter
--- OUTSIDE RECORDS SUMMARY | 2025-02-11 10:44 | XMS_ITS | Encounter Summary ---
Author Organization [employer] Address [address] [facility] 7t [place] [address] Care Team Providers Care Seismic Engineer Name Role Phone Arlet Beltran MD Primary Care Provider [phone] Encounter Details Date Type Department Care Team (Late st Contact Info) Description 01/20/2024 Orders Only [facility] MEDICAL [address] [place] [address] ProviderRowena MD Social History Tobacco Use Types [...] 04/12/2025 11:00 AM EDT Office Visit [facility] MEDICAL [address] [place] [address] Arlet Beltran MD [address] [place] [address] documented as of this encounter Procedures Procedure [...] on filedocumented in this encounter Care Teams Seismic Engineer Relationship Specialty Start Date End Date Arlet Beltran MD [address] [place] [address] PCP - General Internal Medicine 08/15/23 documented as of this encounter
--- OUTSIDE RECORDS SUMMARY | 2025-02-11 10:44 | XMS_ITS | Encounter Summary ---
Author Organization [employer] Address [address] [place] [address] 7t [place] [address] Care Team Providers Care Furrier Apprentice Name Role Phone Arlet Beltran MD Primary Care Provider [phone] Chidi Ojeda NP Primary Care Provider [phone] Arlet Beltran MD Primary Care Provider [phone] Reason for Visit * Reason Onset Date Comments Med Refill 03/31/2023 Encounter Details Date Type Department Care Team (Late st Contact Info) Description 03/31/2023 Refill [facility] MEDICAL [address] [place] [address] Arlet Beltran MD [address] [place] [address] Chronic pain after traumatic injury Social History [...] 04/12/2025 11:00 AM EDT Office Visit [facility] MEDICAL [address] [place] [address] Arlet Beltran MD [address] [place] [address] documented as of this encounter Visit Diagnoses Diagnosis Chronic pain after traumatic injury documented in this encounter Care Teams Furrier Apprentice Relationship Specialty Start Date End Date Arlet Beltran MD [address] [place] [address] PCP - General Internal Medicine 04/14/23 08/03/23 Chidi Ojeda NP [address] [place] [address] PCP - General Internal Medicine 08/04/23 08/14/23 Arlet Beltran MD [address] [place] [address] PCP - General Internal Medicine 08/15/23 documented as of this encounter
--- OUTSIDE RECORDS SUMMARY | 2025-02-11 10:44 | XMS_ITS | Encounter Summary ---
Author Organization [employer] Address [address] [place] [address] [address]t [place] [address] Care Team Providers Care Auto Parts Clerk Name Role Phone Arlet Beltran MD Primary Care Provider [phone] Chidi Ojeda NP Primary Care Provider [phone] Arlet Beltran MD Primary Care Provider [phone] Reason for Visit * Reason Comments Med Refill Encounter Details Date Type Department Care Team (Late st Contact Info) Description 05/30/2023 Refill [place] [facility] MEDICAL [address] [place] [address] Arlet Beltran MD [address] [place] [address] Chronic pain after traumatic injury; Panic attacks [...] Description 04/12/2025 11:00 AM EDT Office Visit [facility] MEDICAL [address] [place] [address] Arlet Beltran MD [address] [place] [address] documented as of this encounter Visit Diagnoses Diagnosis Chronic pain after traumatic injury Panic attacks Panic disorder without agoraphobia documented in this encounter Care Teams Auto Parts Clerk Relationship Specialty Start Date End Date Arlet Beltran MD [address] [place] [address] PCP - General Internal Medicine 04/14/23 08/03/23 Chidi Ojeda NP [address] [place] [address] PCP - General Internal Medicine 08/04/23 08/14/23 Arlet Beltran MD [address] [place] [address] PCP - General Internal Medicine 08/15/23 documented as of this encounter
== END ==
LOC: HO.NUCMED 09:59
PROVIDERS: PCP Internal Medicine; Visit Provider Internal Medicine
DX: M84.44 Pathological fracture, hand and fingers (principal)
CPT/HCPCS: 78306; A9503

== ENCOUNTER → 2025-02-11 11:52 | Outpatient (BNV) | payer MEDICARE, MEDICAID, SELFPAY | PROVIDERS: PCP Internal Medicine; Visit Provider Radiology Diagnostic Radiology | DX: M84.44 Pathological fracture, hand and fingers (principal) | CPT/HCPCS: 78306 ==

== ENCOUNTER 2025-03-01 11:23 | Outpatient (REF) | payer MEDICARE, MEDICAID, SELFPAY ==
[2025-03-01 12:41] LABS: Anion Gap 13 (12-20); Blood Urea Nitrogen 31 mg/dL (9-16); Calcium 9.9 mg/dL (8.4-10.2); Carbon Dioxide 31 mmol/L (22-29); Chloride 97 mmol/L (96-108); Estimated Glomerular Filt Rate 48; Potassium 4.1 mmol/L (3.3-5.1); Sodium 137 mmol/L (135-145)
--- OUTSIDE RECORDS SUMMARY | 2025-03-01 15:30 | XMS_ITS | Encounter Summary ---
Author Organization [employer] Address [address] [place] [address] [address] [place] [address] Care Team Providers Care Earth Auger Operator Name Role Phone Arlet Beltran MD Primary Care Provider [phone] Chidi Ojeda NP Primary Care Provider [phone] Arlet Beltran MD Primary Care Provider [phone] Reason for Visit * Reason Onset Date Comments Med Refill 05/30/2023 Encounter Details Date Type Department Care Team (Late st Contact Info) Description 05/30/2023 Refill [facility] MEDICAL [address] [place] [address] Arlet Beltran MD [address] [place] [address] Panic attacks; Chronic pain after traumatic injury [...] Description 04/12/2025 11:00 AM EDT Office Visit [facility] MEDICAL [address] [place] [address] Arlet Beltran MD [address] [place] [address] documented as of this encounter Visit Diagnoses Diagnosis Panic attacks Panic disorder without agoraphobia Chronic pain after traumatic injury documented in this encounter Care Teams Earth Auger Operator Relationship Specialty Start Date End Date Arlet Beltran MD [address] [place] [address] PCP - General Internal Medicine 04/14/23 08/03/23 Chidi Ojeda NP [address] [place] [address] PCP - General Internal Medicine 08/04/23 08/14/23 Arlet Beltran MD [address] [place] [address] PCP - General Internal Medicine 08/15/23 documented as of this encounter
--- OUTSIDE RECORDS SUMMARY | 2025-03-01 15:30 | XMS_ITS | Encounter Summary ---
Author Organization [employer] [facility] Address [address] [place] [address] 7[address] [place] [address] Care Team Providers Care Licensed Mortician Name Role Phone Arlet Beltran MD Primary Care Provider [phone] Reason for Visit * Reason Onset Date Comments Med Refill 10/23/2023 Encounter Details Date Type Department Care Team (Late st Contact Info) Description 10/23/2023 Refill [facility] MEDICAL [address] [place] [address] Arlet Beltran MD [address] [place] [address] Chronic bilateral low back pain with bilateral [...] Description 04/12/2025 11:00 AM EDT Office Visit [address] [address] Arlet Beltran MD [address] [place] [address] documented as of this encounter Visit Diagnoses Diagnosis Chronic bilateral low back pain with bilateral sciatica documented in this encounter Care Teams Licensed Mortician Relationship Specialty Start Date End Date Arlet Beltran MD [address] [place] [address] PCP - General Internal Medicine 08/15/23 documented as of this encounter
--- OUTSIDE RECORDS SUMMARY | 2025-03-01 15:30 | XMS_ITS | Encounter Summary ---
Author Organization [employer] Address [address] [place] [address] 7t [place] [address] Care Team Providers Care Mobile Sales Consultant Name Role Phone Arlet Beltran MD Primary Care Provider [phone] Chidi Ojeda NP Primary Care Provider [phone] Arlet Beltran MD Primary Care Provider [phone] Reason for Visit * Reason Comments Med Refill Encounter Details Date Type Department Care Team (Late st Contact Info) Description 05/30/2023 Refill [place] [facility] MEDICAL [address] [place] [address] Arlet Beltran MD [address] [place] [address] Chronic pain after traumatic injury; Panic attacks [...] Description 04/12/2025 11:00 AM EDT Office Visit [facility] MEDICAL [address] [place] [address] Arlet Beltran MD [address] [place] [address] documented as of this encounter Visit Diagnoses Diagnosis Chronic pain after traumatic injury Panic attacks Panic disorder without agoraphobia documented in this encounter Care Teams Mobile Sales Consultant Relationship Specialty Start Date End Date Arlet Beltran MD [address] [place] [address] PCP - General Internal Medicine 04/14/23 08/03/23 Chidi Ojeda NP [address] [place] [address] PCP - General Internal Medicine 08/04/23 08/14/23 Arlet Beltran MD [address] [place] [address] PCP - General Internal Medicine 08/15/23 documented as of this encounter
--- OUTSIDE RECORDS SUMMARY | 2025-03-01 15:30 | XMS_ITS | Clinical Summary ---
Author Organization [email or web address] Address [address] [place] [address] 7t [place] [address] Care Team Providers Care Astronomy Department Chair Name Role Phone Arlet Beltran MD Primary Care Provider [phone] Allergies Active Allergy Reactions Criticality Noted Date [...] MG tabletIndicati ons:Atheroscle rotic heart disease of [place] coronary artery without angina pectoris Take 1 [...] complication, without long-term current use of insulin ([facility]) Inject 2.5 mg under the [...] for 30 120 capsule 02/08/20 25 Active methadone (Dolophine) 10 MG tabletIndicati [...] Encounters Date Type Department Care Team Description 02/11/2025 Results Follow-Up [address] [address] Arlet Beltran MD NM BONE SCAN WHOLE BODY 02/06/[address] [address] Arlet Beltran MD Chronic bilateral low back pain with bilateral sciatica; Diarrhea, unspecified type 01/10/[address] [address] Arlet Beltran MD Chronic bilateral low back pain with bilateral sciatica; Diarrhea, unspecified type 01/10/[address] [address] Arlet Beltran MD 01/10/[address] [address] Arlet Beltran MD Chronic bilateral low back pain with bilateral sciatica 01/06/2025 10:30 AM EDT Office Visit [address] [address] Arlet Beltran MD Pathological fracture of phalanx of finger of right hand with delayed healing, unspecified pathological cause, subsequent encounter (Primary Dx); Type 2 diabetes mellitus without complication, without long-term current use of insulin ([facility]) 01/02/2025 Travel 12/12/2024 Refill [facility] [address] [place] [address] [facility] Atherosclerotic heart disease of [place] coronary artery without angina pectoris 12/12/2024 Cecil Drapern [facility] [address] [place] [address] Arlet Beltran MD Panic attacks; Chronic pain after traumatic injury; Chronic bilateral low back pain with bilateral sciatica; Diarrhea, unspecified type from Last 3 Months [...] 04/12/2025 11:00 AM EDT Office Visit [facility] [address] [place] [address] Arlet Beltran MD [address] [place] [address] Health Maintenance Due Date Last Done Comments [...] 11/07/2010 Zoster Vaccines (1 of 2) 2020 Eye Exam 06/19/2024 06/19/2022, 09/2022, 06/19/2022, Additional history exists Diabetes: Urine Protein Screening 08/12/2024 08/12/2023, 10/29/2019 Depression Screening 12/29/2024 12/30/2023, 12/30/19 SDOH Screening 12/29/2024 12/30/2023 COVID-19 Vaccine ( season) 2025 06/06/2022, 11/16/2020, 10/19/2020 Influenza Vaccine (#1) 2025 , 03/28/2023, 06/06/2022, [...] Procedure Name Priority Date/Time Associated Diagnosis Comments NM BONE SCAN WHOLE BODY Routine 02/11/2025 Pathological fracture of phalanx of finger of right hand with delayed healing, unspecified pathological cause, subsequent encounter CBC WITH AUTO DIFFERENTIAL Routine 01/06/2025 11:29 AM EDT Type 2 diabetes mellitus without complication, without long-term current use of insulin (CMS/HCC) HEMOGLOBIN A1C Routine 01/06/2025 11:29 AM EDT Type 2 diabetes mellitus without complication, without long-term current use of insulin (CMS/HCC) COMPREHENSIVE METABOLIC PANEL Routine 01/06/2025 11:29 AM EDT Pathological fracture of phalanx of finger of right hand with delayed healing, unspecified pathological cause, subsequent encounter LIPID PANEL, STANDARD Routine 10/07/2024 10:33 AM EDT Type 2 diabetes mellitus without complication, without long-term current use of insulin (CMS/HCC) MICROALBUMIN, RANDOM (W CREAT) Routine 08/12/2023 11:34 AM EST Type 2 diabetes mellitus without complication, without long-term current use of insulin (CMS/HCC) from Last 3 Months or Most Recently Relevant to Health Maintenance Results * NM BONE SCAN WHOLE BODY (02/11/2025) Anatomical Region Laterality Modality Nuclear Medicine us Arlet Beltran MD [facility] PROCEDURES Final Result * (ABNORMAL) CBC auto differential (01/06/2025 11:29 [...] 01/06/2025 Narrative Resulting Agency Comment Performed at: - [facility] [id number] Hydraulic Chair Assembler: Romelia Randolph MD, Phone: [phone] us Arlet Beltran MD LAB BLOOD ORDERABLES Final Resul t [facility] * (ABNORMAL) Hemoglobin A1c (01/06/2025 11:29 AM EDT) Hemoglobin A1c 6.9(H) 4.8 - 5.6 % [facility] 1 Comment: Prediabetes: 5.7 - 6.4 Diabetes: >6.4 Glycemic control for adults with diabetes: <7.0 Blood Venous blood specimen / Unknown 01/06/2025 11:29 AM EDT 01/06/2025 Narrative Resulting Agency Comment Performed at: 01 - [facility] [id number] Hydraulic Chair Assembler: Romelia Randolph MD, Phone: [phone] us Arlet Beltran MD LAB BLOOD ORDERABLES [...] 01/06/2025 Narrative Resulting Agency Comment Performed at: - [facility] [address] [id number] Hydraulic Chair Assembler: Romelia Randolph MD, Phone: [phone] Arlet Beltran MD LAB BLOOD ORDERABLES Final Resul t Performing Organization Address [facility] Co de Phone Number [id number] * [...] - 10/08/2024 12:05 AM EDT Performed at: - [facility] [address] [id number] Hydraulic Chair Assembler: Romelia Randolph MD, Phone: [phone] Arlet Beltran MD LAB BLOOD ORDERABLES Final Resul t Performing Organization Address [facility] Co de Phone Number [id number] * Microalbumin, Random Urine w/Creatinine (08/12/2023 11:34 AM EST) Micro-Albumin <12.0 (<20) MG/L [facility] Comment: The urine microalbumin test is designed to monitor renal function. When screening for Bence Velasquez proteinuria, urine electrophoresis is recommended. Malb/Creat Ratio Unable to calculate (0-20) MG/GM [facility] Urine Creat For Micro Albumin 26.7 MG/DL [facility] Comment: Testing performed or reported by [facility], a Service of [facility], [address] [place] [address] Bobby Pacheco MD, Senior Sas Programmer IA# [id number] Urine (Urine, Random) 08/12/2023 11:34 AM EST 08/12/2023 11:57 AM EST us Chidi Ojeda NP LAB URINE ORDERABLES Final R esult [facility] [address] [place] [address] from Last 3 Months or Most Recently Relevant to Health Maintenance Insurance MEDICARE Member Subscriber Plan / Payer (Ef fective 2022-Present) Name:Daniel Palmer Member ID:[id number] Relation to Subscriber:Self Name:Daniel Palmer Subscriber ID:[id number] Payer ID:STATE Group ID:Not on file Type:Medicare Address: [facility] [address] [address] [facility] STANDARD Care Teams Astronomy Department Chair Relationship Specialty Start Date End Date Arlet Beltran MD [address] [place] [address] PCP - General Internal Medicine 08/15/23
--- OUTSIDE RECORDS SUMMARY | 2025-03-01 15:30 | XMS_ITS | Encounter Summary ---
Author Organization [employer] [facility] Address [address] [place] [address] 7t [place] [address] Care Team Providers Care Wheel Press Operator Name Role Phone Arlet Beltran MD Primary Care Provider [phone] Chidi Ojeda NP Primary Care Provider [phone] Arlet Beltran MD Primary Care Provider [phone] Encounter Details Date Type Department Care Team (Late st Contact Info) Description 05/15/[address] [facility] [address] [place] [address] Arlet Beltran MD [address] [place] [address] Social History Tobacco Use Types Packs/Day Years [...] 04/12/2025 11:00 AM EDT Office Visit [facility] [address] [place] [address] Arlet Beltran MD [address] [place] [address] documented as of this encounter Visit Diagnoses Not on filedocumented in this encounter Care Teams Wheel Press Operator Relationship Specialty Start Date End Date Arlet eBltran MD [address] [place] [address] PCP - General Internal Medicine 04/14/23 08/03/23 Chidi Ojeda NP [address] [place] [address] PCP - General Internal Medicine 08/04/23 08/14/23 Arlet Beltran MD [address] [place] [address] PCP - General Internal Medicine 08/15/23 documented as of this encounter
--- OUTSIDE RECORDS SUMMARY | 2025-03-01 15:30 | XMS_ITS | Encounter Summary ---
Author Organization [employer] [facility] Address [address] [place] [address] 7t [place] [address] Care Team Providers Care Deputy Chief Magistrate Name Role Phone Arlet Beltran MD Primary Care Provider [phone] Chidi Ojeda NP Primary Care Provider [phone] Arlet Beltran MD Primary Care Provider [phone] Reason for Visit * Reason Onset Date Comments Med Refill 05/22/2023 Encounter Details Date Type Department Care Team (Late st Contact Info) Description 05/22/2023 Refill [facility] [address] [place] [address] Arlet Beltran MD [address] [place] [address] Chronic pain after traumatic injury Social History [...] Description 04/12/2025 11:00 AM EDT Office Visit [facility] [address] [place] [address] Arlet Beltran MD [address] [place] [address] documented as of this encounter Visit Diagnoses Diagnosis Chronic pain after traumatic injury documented in this encounter Care Teams Deputy Chief Magistrate Relationship Specialty Start Date End Date Arlet Beltran MD [address] [place] [address] PCP - General Internal Medicine 04/14/23 08/03/23 Chidi Ojeda NP [address] [place] [address] PCP - General Internal Medicine 08/04/23 08/14/23 Arlet Beltran MD [address] [place] [address] PCP - General Internal Medicine 08/15/23 documented as of this encounter
--- OUTSIDE RECORDS SUMMARY | 2025-03-01 15:30 | XMS_ITS | Encounter Summary ---
Author Organization [facility] Address [address] [place] [address] 7t [place] [address] Care Team Providers Care Polymerization Supervisor Name Role Phone Arlet Beltran MD Primary Care Provider [phone] Chidi Ojeda NP Primary Care Provider [phone] Arlet Beltran MD Primary Care Provider [phone] Encounter Details Date Type Department Care Team (Late st Contact Info) Description 05/28/[address] [facility] MEDICAL [address] [place] [address] [place] Social History Tobacco Use [...] Description 04/12/2025 11:00 AM EDT Office Visit [facility] [address] [place] [address] Arlet Beltran MD [address] [place] [address] documented as of this encounter Procedures Procedure [...] lite in Saliva by Confirmatory method POSITIVE(A) [facility] Comment: Reference range: Cutoff EQ 10 (NOTE) Confirmation performed by Mass Spectrometry EDDP NEGATIVE [facility] Comment:Reference range: Cut off EQ 25 Methadone, Oral Fluid POSITIVE(A) [facility] Methadone [address] [facility] Comment: Reference range: Cutoff EQ 25 Unit: ng/mL Testing performed or reported by [facility], a Service of [facility], [address] [place] [address] Bobby Pacheco MD, Look Out Tower Fire Watcher CLIA# [id number] 03/28/2023 11:3 2 AM EDT 03/28/2023 7:28 PM EDT Arlet Beltran MD LAB BODY FLUIDS AND STOOLS ORDER CLAUDE Final Result [facility] [address] [place] [address] * (ABNORMAL) TSH (06/06/2022 9:40 AM EST) TSH 5.61(H) (0.4-4.2) uIU/mL [facility] Comment: Testing performed or reported by [facility], a Service of [facility], [address] [place] [address] Elias Liao MD, Look Out Tower Fire Watcher CLIA# [id number] 06/06/2022 9:40 AM EST 06/06/2022 9:46 AM EST Arlet Beltran MD LAB BLOOD ORDERABLES Final Resul t Performing Organization Address [facility]/ZIP Co de Phone Number [facility] [address] [place] [address] * (ABNORMAL) Lipid Panel, Standard (06/06/2022 9:40 AM EST) Cholesterol, Total 134 (<200) MG/DL [facility] Triglyceride (mg/dL) in Serum/Plasma 494(H) (<150) MG/DL [facility] HDL Cholesterol 25(L) (>39) MG/DL [facility] LDL Cholesterol, Calculated 10 (0-130) MG/DL [facility] Non HDL Chol. (LDL+VLDL) 109 (<160) MG/DL [facility] Comment: Testing performed or reported by [facility], a Service of [facility], [address] [place] [address] Elias Liao MD, Look Out Tower Fire Watcher [facility]# [id number] 06/06/2022 9:40 AM EST 06/06/2022 9:46 AM EST Arlet Beltran MD LAB BLOOD ORDERABLES Final Resul t Performing Organization Address [facility] Co de Phone Number [address] [address] * (ABNORMAL) Comprehensive Metabolic Panel (06/06/2022 9:40 AM EST) Glucose 343(H) (70-99) MG/DL [facility] BUN 38(H) (6-20) MG/DL [facility] Creatinine, Serum 1.1 (0.7-1.2) MG/DL [facility] Sodium 135 (133-145) MMOL/L [facility] Potassium 4.2 (3.6-5.2) MMOL/L [facility] Chloride 89(L) (98-107) MMOL/L [facility] Bicarbonate 29 (22-29) MMOL/L [facility] Anion Gap 17 (4-17) [facility] Albumin 4.3 (3.4-4.8) GM/DL [facility] Calcium 9.5 (8.6-10.5) MG/DL [facility] Bilirubin, Total 0.6 (0-1.2) MG/DL [facility] Total Protein 8.2 (6.2-8.2) GM/DL [facility] Albumin/Globulin Ratio 1.1 [facility] AST 26 (0-40) U/L [facility] Alkaline Phosphatase 77 (40-129) U/L [facility] ALT (SGPT) 17 (0-41) U/L [facility] eGFR Creatinine 83 ML/MIN/1.7 3 M2 [facility] Comment: Creatinine based estimated glomerular filtration (eGFR) in adults is calculated using the National Kidney [employer] recommended 2020 CKD-EPI equation. Estimates GFR from serum creatinine, age and sex. Testing performed or reported by [facility], a Service of [facility], [address] [place] [address] Elias Liao MD, Look Out Tower Fire Watcher [facility]# [id number] 06/06/2022 9:40 AM EST 06/06/2022 9:46 AM EST us Arlet Beltran MD LAB BLOOD ORDERABLES Final Resul t [address] [address] * (ABNORMAL) CBC (06/06/2022 9:40 AM EST) WBC 6.6 (4.0-11.0) K/MM3 [facility] RBC 4.20(L) (4.70-6.10 ) M/MM3 [facility] HGB 11.2(L) (13.7-17.1 ) GM/DL [facility] HCT 36.6(L) (40.5-50.0 ) % [facility] MCV 87.1 (80.0-94.0 ) FL [facility] MCH 26.7(L) (27.0-34.0 ) PG [facility] McHC 30.6(L) (33.0-37.0 ) g/dL [facility] PLT 267 (150-460) K/MM3 [facility] RDW-SD 47.7(H) (<47.0) FL [facility] MPV 12.3 (9.4-12.4) FL [facility] Automated NRBC 0.0 #/100 WBC'S [facility] ABS NRBC 0.0 K/MM3 [facility] Comment: Testing performed or reported by [facility], a Service of [facility], [address] [place] [address] Elias Liao MD, Look Out Tower Fire Watcher [facility]# [id number] 06/06/2022 9:40 AM EST 06/06/2022 9:46 AM EST us Arlet Beltran MD LAB BLOOD ORDERABLES Final Resul t [facility] [address] [place] [address] documented in this encounter Visit Diagnoses Not on filedocumented in this encounter Care Teams Polymerization Supervisor Relationship Specialty Start Date End Date Arlet Beltran MD [address] [place] [address] PCP - General Internal Medicine 04/14/23 08/03/23 Chidi Ojeda NP [address] [place] [address] PCP - General Internal Medicine 08/04/23 08/14/23 Arlet Beltran MD [address] [place] [address] PCP - General Internal Medicine 08/15/23 documented as of this encounter
--- OUTSIDE RECORDS SUMMARY | 2025-03-01 15:30 | XMS_ITS | Encounter Summary ---
Author Organization [employer] [facility] Address [address] [place] [address] 7t [place] [address] Care Team Providers Care Legal Aid Name Role Phone Arlet Beltran MD Primary Care Provider [phone] Chidi Ojeda NP Primary Care Provider [phone] Arlet Beltran MD Primary Care Provider [phone] Encounter Details Date Type Department Care Team [...] AM EDT Office Visit [facility] MEDICAL [address] [place] [address] Arlet Beltran MD [address] [place] [address] documented as of this encounter Visit Diagnoses Not on filedocumented in this encounter Care Teams Legal Aid Relationship Specialty Start Date End Date Arlet Beltran MD [address] [place] [address] PCP - General Internal Medicine 04/14/23 08/03/23 Chidi Ojeda NP [address] [place] [address] PCP - General Internal Medicine 08/04/23 08/14/23 Arlet Beltran MD [address] [place] [address] PCP - General Internal Medicine 08/15/23 documented as of this encounter
--- OUTSIDE RECORDS SUMMARY | 2025-03-01 15:30 | XMS_ITS | Encounter Summary ---
Author Organization [employer] Address [address] [facility] 7t [place] [address] Care Team Providers Care Electronic Engineering Technician Name Role Phone Alret Beltran MD Primary Care Provider [phone] Encounter Details Date Type Department Care Team (Late st Contact Info) Description 01/20/[address] [facility] MEDICAL [address] [place] [address] ProviderRowena MD Social History Tobacco Use Types [...] Description 04/12/2025 11:00 AM EDT Office Visit [facility] MED[facility] [address] [place] [address] Arlet Beltran MD [address] [place] [address] documented as of this encounter Procedures Procedure [...] on filedocumented in this encounter Care Teams Electronic Engineering Technician Relationship Specialty Start Date End Date Arlet Beltran MD [address] [place] [address] PCP - General Internal Medicine 08/15/23 documented as of this encounter
--- OUTSIDE RECORDS SUMMARY | 2025-03-01 15:31 | XMS_ITS | Clinical Summary ---
Author Organization [address] [place] [address] Address [address] [place] [address] Phone Care Team Providers Care Technician Test Systems Name Role Phone Arlet Beltran MD Primary Care Provider [phone] Allergies Active Allergy Reactions Criticality Noted Date [...] warfarin (COUMADIN) 2 mg tablet Managed by [facility]. Active metFORMIN XR (GLUCOPHAGE-XR) [...] in the past. CHF (congestive heart failure) ([facility] V24, [facility] V28) 08/12/2023 Overview (04/20/2024): 53-year-old man [...] 05/19/2022 Social Influencers of Health Screening 05/19/2022 Depression Screening 06/16/2024 Diabetes: Blood Sugar Control Test (HGBA1C) 07/16/2024 12/30/2023, 08/12/2023 Diabetes: Annual Urine Albumin-Creatinine Ratio (uACR) 08/12/2024 08/12/2023 Diabetes: Annual GFR (Glomerular Filtration Rate) 08/12/2024 08/12/2023 Hypertension/CHF/CAD Annual BMP Blood Test 08/12/2024 08/12/2023 COVID-19 Vaccine ( season) 2025 06/06/2022, 11/16/2020, [...] (08/12/2023) Urine Albumin Creatinine Ratio Abstracted Result [facility] Provider HEALTH MAINTENANCE Final Result * Annual BMP Blood Test (08/12/2023) Annual BMP Blood Test Abstracted [facility] Provider HEALTH MAINTENANCE Final Result * Hemoglobin A1c (08/12/2023) Pathologist [facility] Hemoglobin A1C 0.0 % Comment:No interpretation, A bstracted Blood Venous blood specimen / Unknown Result [facility] Provider LAB BLOOD ORDERABLES Michaela l Result * Lipid panel (08/12/2023) Triglycerides 0 mg/dL Comment:No interpretation, A bstracted Cholesterol 0 mg/dL Comment:No interpretation, A bstracted HDL 0 mg/dL Comment:No interpretation, A bstracted LDL Cholesterol 0 mg/dL Comment:No interpretation, A bstracted Blood Venous blood specimen / Unknown Result [facility] Provider LAB BLOOD ORDERABLES Michaela l Result from Last 3 Months or Most Recently Relevant to Health Maintenance Insurance MEDICARE MEDICAID - [place] Care Teams Technician Test Systems Relationship Specialty Start Date End Date Arlet Beltran MD [address] [place] [address] PCP - General 08/25/13
--- OUTSIDE RECORDS SUMMARY | 2025-03-01 15:31 | XMS_ITS | Encounter Summary ---
Author Organization [employer] Address [address] [place] [address] 7t [place] [address] Care Team Providers Care Nib Finisher Name Role Phone Arlet Beltran MD Primary Care Provider [phone] Chidi Ojeda NP Primary Care Provider [phone] Arlet Beltran MD Primary Care Provider [phone] Reason for Visit * Reason Onset Date Comments Med Refill 03/31/2023 Encounter Details Date Type Department Care Team (Late st Contact Info) Description 03/31/2023 Refill [facility] MEDICAL [address] [place] [address] Arlet Beltrna MD [address] [place] [address] Chronic pain after traumatic injury Social History [...] 04/12/2025 11:00 AM EDT Office Visit [facility] [address] [place] [address] Arlet Beltran MD [address] [place] [address] documented as of this encounter Visit Diagnoses Diagnosis Chronic pain after traumatic injury documented in this encounter Care Teams Nib Finisher Relationship Specialty Start Date End Date Arlet Beltran MD [address] [place] [address] PCP - General Internal Medicine 04/14/23 08/03/23 Chidi Ojeda NP [address] [place] [address] PCP - General Internal Medicine 08/04/23 08/14/23 Arlet Beltran MD [address] [place] [address] PCP - General Internal Medicine 08/15/23 documented as of this encounter
--- OUTSIDE RECORDS SUMMARY | 2025-03-01 15:31 | XMS_ITS | Clinical Summary ---
Author Organization [facility] Address [address] [place] [address] Care Team Providers Care Orthodontist Vice President Name Role Phone Unavailable Primary Care Provider [...] Atopic dermatitis 05/27/2022 CHF (congestive heart failure) ([facility]) 1 07/28/2021 Chronic pain after traumatic injury 05/27/2022 Depression 05/27/2022 Entrapment of right ulnar nerve 05/27/2022 Eosinophilia 05/27/2022 Essential (primary) hypertension 05/27/2022 Gastro-esophageal reflux disease without esophag itis 05/27/2022 Gout of right foot 05/27/2022 H/O mitral valve replacement with mechanical christal ve 05/27/2022 History of partial colectomy 05/27/2022 Hx of CABG 05/27/2022 Hyperglycemia due to diabetes mellitus ([facility]) 05/27/2022 Hyperlipidemia 05/27/2022 Hypomagnesemia 05/27/2022 [...] 03/26/2023 12/24/2022, 05/17, 10/29/2019, Additional history exists Alcohol and Drug Screen 06/16/2024 [id number] ( - season) 2025 06/06/2022, 11/16/2020, 10/19/2020 Imm-Influenza (#1) 2025 03/28/2023, 1 08/06/2020, 03/06/2021, Additional history exists Imm-DTaP/Tdap/Td (3 - Td or Tdap) 05/31/2025 015, 02/23/2013 Insurance [place]
== END 2025-03-01 11:24 | disposition home or self-care (01) ==
LOC: HO.LAB 11:23
PROVIDERS: PCP Internal Medicine; Visit Provider Internal Medicine
DX: E11.9 Type 2 diabetes mellitus without complications (principal)
CPT/HCPCS: 36415; 80048

== ENCOUNTER 2025-03-08 12:40 | Outpatient (REF) | payer MEDICARE, MEDICAID, SELFPAY ==
--- NOTE | ~2025-03-08 | CT_ITS ---
EXAMINATION: CT CHEST WITH CONTRAST CLINICAL INFORMATION: Pathologic fracture COMPARISON: None available. TECHNIQUE: Multidetector volumetric CT imaging of the chest was obtained after the administration of 50 mL of Omnipaque 350 intravenous contrast without immediate adverse reactions. Axial MIP volume rendering provided. Sagittal and coronal reformatted images were obtained. This CT examination was performed using dose optimization techniques as appropriate, variously including the following: *Automated exposure control *Adjustment of mA and/or kV according to patient size (this includes techniques or standardized protocols for targeted exams where dose is matched to indication/reason for exam; i.e. extremities or head) *Use of iterative reconstruction technique FINDINGS: LUNGS: The lungs are clear with no evidence of inflammation or nodules. MEDIASTINUM: The mediastinum is normal. PLEURA: There is no pleural effusion. No pleural mass or thickening. AXILLA/SOFT TISSUES: No lymphadenopathy. There is lobular subareolar soft tissue density bilaterally in the anterior chest wall. UPPER ABDOMEN: Reference CT abdomen and pelvis performed same day OSSEOUS STRUCTURES: No lytic or blastic lesions are identified. CT/CT chest w IV con IMPRESSION: Gynecomastia. Mild thoracic degenerative disc disease. No other abnormalities are identified. Fleischner guidelines were followed. Electronically signed by: Jj Pedraza MD 03/08/2025 03:30 PM EDT
--- NOTE | ~2025-03-08 | CT_ITS ---
EXAMINATION: CT ABDOMEN AND PELVIS WITH CONTRAST CLINICAL INFORMATION: Pathologic fracture COMPARISON: None available. TECHNIQUE: Multidetector volumetric images were obtained from the superior aspect of the liver through the pubic symphysis following administration 85 mL of Omnipaque 350 intravenous contrast. Sagittal and coronal reformatted images were obtained on the technologist's workstation. Oral contrast: No This CT examination was performed using dose optimization techniques as appropriate, variously including the following: *Automated exposure control *Adjustment of mA and/or kV according to patient size (this includes techniques or standardized protocols for targeted exams where dose is matched to indication/reason for exam; i.e. extremities or head) *Use of iterative reconstruction technique FINDINGS: LIVER, GALLBLADDER, AND BILIARY TREE: Punctate calcification is present in the posterior superior and the anterior inferior right hepatic segments likely from chronic granulomatous disease. Small hypoattenuating area in the posterior dome of the liver is likely a small simple hepatic cysts. There are a few tiny punctate stones in the dependent portion of the gallbladder. Gallbladder is otherwise unremarkable. There is no biliary ductal dilation. PANCREAS: Unremarkable. SPLEEN: Unremarkable. ADRENAL GLANDS: There is an 11 mm left adrenal nodule measuring 47 Hounsfield units. Right adrenal gland is within normal limits. KIDNEYS AND URETERS: The kidneys are normal in size, shape, and attenuation. No hydronephrosis, hydroureter, or calculi seen. No perinephric stranding. BLADDER: Unremarkable. GASTROINTESTINAL TRACT: There are surgical clips in right upper quadrant. There is surgical anastomosis at the rectum. There appears to be left hemicolectomy. There is a moderate to large amount of stool gas at the level of the anastomosis. ABDOMINAL WALL: There is laxity of the fascia in the right abdomen anterior to the right with a large outpouching containing small bowel and one third to one half of the remaining colon. Left inguinal hernia contains adipose tissue. LYMPH NODES: Normal. VASCULAR: Moderate atherosclerotic calcifications are present. PELVIC VISCERA: Unremarkable. OSSEOUS STRUCTURES: Unremarkable. No fracture, lytic, or blastic lesions are identified. CT/CT abdomen pelvis w IV con IMPRESSION: There is an indeterminate 11 mm left adrenal gland nodule. Recommend 1-year followup adrenal protocol CT. Also, if clinically indicated, consider concurrent laboratory evaluation for possible pheochromocytoma. Cholelithiasis. There is a large outpouching in the right abdominal wall likely from fascial laxity a concurrent herniation is not ruled out. The outpouching contains small bowel and one third to one half of the remaining colon post left hemicolectomy. There is a surgical anastomosis at the rectum and a moderately large amount stool and gas at the anastomosis without sign of obstruction otherwise. Small left inguinal hernia contains fat. Fleischner guidelines were followed. Electronically signed by: Jj Pedraza MD 03/08/2025 03:53 PM EDT
[2025-03-08] MEDS: iohexoL 350 MG/ML 100 ML INFUS..BTL IV (15:15)
[2025-03-08] MEDS: Barium Sulfate Oral (Mocha) 450 ML ORAL.SUSP 900 ML PO (15:17)
--- OUTSIDE RECORDS SUMMARY | 2025-03-08 15:37 | XMS_ITS | Encounter Summary ---
Author Organization [facility] Address [address] [place] [address] 7[address] [place] [address] Care Team Providers Care Film Historian Name Role Phone Arlet Beltran MD Primary Care Provider [phone] Chidi Ojeda NP Primary Care Provider [phone] Arlet Beltran MD Primary Care Provider [phone] Encounter Details Date Type Department Care Team [...] EDT Office Visit [facility] MEDICAL [address] [place] [address] Arlet Beltran MD [address] [place] [address] documented as of this encounter Visit Diagnoses Not on filedocumented in this encounter Care Teams Film Historian Relationship Specialty Start Date End Date Arlet Beltran MD [address] [place] [address] PCP - General Internal Medicine 04/14/23 08/03/23 Chidi Ojeda NP [address] [place] [address] PCP - General Internal Medicine 08/04/23 08/14/23 Arlet Beltran MD [address] [place] [address] PCP - General Internal Medicine 08/15/23 documented as of this encounter
--- OUTSIDE RECORDS SUMMARY | 2025-03-08 15:37 | XMS_ITS | Encounter Summary ---
Author Organization [facility] Address [address] [place] [address] 7t [place] [address] Care Team Providers Care Guide Cruise Name Role Phone Arlet Beltran MD Primary Care Provider [phone] Chidi Ojeda NP Primary Care Provider [phone] Arlet Beltran MD Primary Care Provider [phone] Encounter Details Date Type Department Care Team (Late st Contact Info) Description 05/15/2022 Abstract [facility] [address] [place] [address] Arlet Beltran MD [address] [place] [address] Social History Tobacco Use Types Packs/Day Years [...] Description 04/12/2025 11:00 AM EDT Office Visit [facility] [address] [place] [address] Arlet Beltran MD [address] [place] [address] documented as of this encounter Visit Diagnoses Not on filedocumented in this encounter Care Teams Guide Cruise Relationship Specialty Start Date End Date Arlet Beltran MD [address] [place] [address] PCP - General Internal Medicine 04/14/23 08/03/23 Chidi Ojeda NP [address] [place] [address] PCP - General Internal Medicine 08/04/23 08/14/23 Arlet Beltran MD [address] [place] [address] PCP - General Internal Medicine 08/15/23 documented as of this encounter
--- OUTSIDE RECORDS SUMMARY | 2025-03-08 15:37 | XMS_ITS | Encounter Summary ---
Author Organization [employer] Address [address] [facility] 7t [place] [address] Care Team Providers Care Gmat Tutor Name Role Phone Arlet Beltran MD Primary Care Provider [phone] Encounter Details Date Type Department Care Team (Late st Contact Info) Description 01/20/2024 Orders Only [facility] MEDICAL [address] [place] [address] ProviderRowena MD Social History Tobacco Use Types [...] 04/12/2025 11:00 AM EDT Office Visit [facility] MEDICAL [address] [place] [address] Arlet Beltran MD [address] [place] [address] documented as of this encounter Procedures Procedure [...] on filedocumented in this encounter Care Teams Gmat Tutor Relationship Specialty Start Date End Date Arlet Beltran MD [address] [place] [address] PCP - General Internal Medicine 08/15/23 documented as of this encounter
--- OUTSIDE RECORDS SUMMARY | 2025-03-08 15:38 | XMS_ITS | Encounter Summary ---
Author Organization [employer] Address [address] [facility] 7t [place] [address] Care Team Providers Care Sheriffs Officer Name Role Phone Arlet Beltran MD Primary Care Provider [phone] Reason for Visit * Reason Onset Date Comments Med Refill 03/03/2025 CSA refill on Me carmendonphilip Encounter Details Date Type Department Care Team (Late st Contact Info) Description 03/03/2025 Refill [facility] [address] [place] [address] Arlet Beltran MD [address] [place] [address] Chronic bilateral low back pain with bilateral [...] * Telephone Encounter - JENNIFER Hobbs - 03/03/2025 8:54 AM EDT [facility] Last fill Date: 02/07/25 #168/28 d [facility] sold Date: 02/08 Last OV: 01/06/25 Next OV: 04/12/25 Last UTOX: 10/07/24 CSA Date: 01/06/25 DNF Date: refill due 03/10/25 documented in this encounter Plan of Treatment Upcoming Encounters Date Type Department Care Team (Late st Contact Info) Description 04/12/2025 11:00 AM EDT Office Visit [facility] MEDICAL [address] [place] [address] Arlet Beltran MD [address] [place] [address] documented as of this encounter Visit Diagnoses Diagnosis Chronic bilateral low back pain with bilateral sciatica documented in this encounter Care Teams Sheriffs Officer Relationship Specialty Start Date End Date Arlet Beltran MD [address] [place] [address] PCP - General Internal Medicine 08/15/23 documented as of this encounter
--- OUTSIDE RECORDS SUMMARY | 2025-03-08 15:38 | XMS_ITS | Clinical Summary ---
Author Organization [facility] Address [address] [place] [address] Care Team Providers Care Last Sorter Name Role Phone Unavailable Primary Care Provider [...] Atopic dermatitis 05/27/2022 CHF (congestive heart failure) ([facility]) 1 07/28/2021 Chronic pain after traumatic injury 05/27/2022 Depression 05/27/2022 Entrapment of right ulnar nerve 05/27/2022 Eosinophilia 05/27/2022 Essential (primary) hypertension 05/27/2022 Gastro-esophageal reflux disease without esophag itis 05/27/2022 Gout of right foot 05/27/2022 H/O mitral valve replacement with mechanical christal ve 05/27/2022 History of partial colectomy 05/27/2022 Hx of CABG 05/27/2022 Hyperglycemia due to diabetes mellitus ([facility]) 05/27/2022 Hyperlipidemia 05/27/2022 Hypomagnesemia 05/27/2022 Resolved Problems [...] history exists Alcohol and Drug Screen 06/16/2024 [id number] ( - season) 2025 06/06/2022, 11/16/2020, 10/19/2020 Imm-Influenza (#1) 2025 03/28/2023, 1 08/06/2020, 03/06/2021, Additional history exists Imm-DTaP/Tdap/Td (3 - Td or Tdap) 05/31/2025 015, 02/23/2013 Insurance [place] DENT[place]
--- OUTSIDE RECORDS SUMMARY | 2025-03-08 15:38 | XMS_ITS | Encounter Summary ---
Author Organization [employer] Address [address] [facility] 7t [place] [address] Care Team Providers Care Hand Inspector Name Role Phone Arlet Beltran MD Primary Care Provider [phone] Reason for Visit * Reason Onset Date Comments Med Refill 03/07/2025 Encounter Details Date Type Department Care Team (Late st Contact Info) Description 03/07/2025 Refill [facility] MEDICAL [address] [place] [address] Arlet Beltran MD [address] [place] [address] Congestive heart failure, unspecified HF chronicity, unspecified heart failure type (CMS/HCC); Chronic bilateral low back pain with bilateral [...] encounter Miscellaneous Notes * Telephone Encounter - Jayla Nava [place] - 03/07/2025 2:28 PM EDT Methadone Refill [facility] Last fill Date: 02/07/25 [facility] sold Date: 02/08/25 #168/28 Last OV: 01/06/25 Next OV: 04/12/25 Last UTOX: 10/07/24 CSA Date: 01/07/25 DNF Date: 03/08/25 documented in this encounter Plan of Treatment Upcoming Encounters Date Type Department Care Team (Late st Contact Info) Description 04/12/2025 11:00 AM EDT Office Visit [facility] MEDICAL [address] [place] [address] Arlet Beltran MD [address] [place] [address] documented as of this encounter Visit Diagnoses Diagnosis Congestive heart failure, unspecified HF chronicity, unspecified heart failure type (CMS/HCC) Chronic bilateral low back pain with bilateral sciatica Diarrhea, unspecified type documented in this encounter Care Teams Hand Inspector Relationship Specialty Start Date End Date Arlet Beltran MD [address] [place] [address] PCP - General Internal Medicine 08/15/23 documented as of this encounter
--- OUTSIDE RECORDS SUMMARY | 2025-03-08 15:38 | XMS_ITS | Clinical Summary ---
Author Organization [employer] Address [address] [place] [address] 7t [place] [address] Care Team Providers Care Foxer Name Role Phone Arlet Beltran MD Primary Care Provider [phone] Allergies Active Allergy Reactions Criticality Noted Date [...] OR SPLIT. 360 tablet 3 03/08/20 24 Active Januvia 100 MG tabletIndicati ons:Hyperglyce [...] day. 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 2 mL 2 01/07/20 25 Active methadone (Dolophine) 10 MG tabletIndicati ons:Chronic bilateral low back pain with bilateral sciatica Take 2 tablets (20 mg) by mouth every 8 (eight) hours for 28 days. DX: FOR CHRONIC PAIN 168 tablet 03/07/20 25 025 Active furosemide (Lasix) 40 MG tabletIndicati ons:Congestive heart failure, unspecified HF chronicity, unspecified heart failure type (CMS/HCC) TAKE 1 TABLET BY MOUTH EVERY DAY FOR 90 DAYS 90 tablet 03/07/20 25 Active methadone (Dolophine) 10 MG tabletIndicati ons:Chronic bilateral low back pain with bilateral sciatica Take 2 tablets (20 mg) by mouth every 8 (eight) hours for 28 days. DX: FOR CHRONIC PAIN 168 tablet 03/07/20 25 025 Active loperamide (Imodium) 2 MG capsuleIndicat ions:Diarrhea, unspecified type TAKE 1 CAPSULE BY MOUTH 4 TIMES A DAY NEEDED for 30 120 capsule 03/07/20 25 Active furosemide (Lasix) 40 MG tabletIndicati ons:Congestive heart failure, unspecified HF chronicity, unspecified heart failure type (CMS/HCC) TAKE 1 TABLET BY MOUTH EVERY DAY FOR 90 DAYS 90 tablet 10/20/19 25 025 Discontinued(R eorder (will not trigger notification to Pharmacy)) methadone (Dolophine) 10 MG tabletIndicati ons:Chronic bilateral low back pain with bilateral sciatica Take 2 tablets (20 mg) by mouth every 8 (eight) hours for 28 days. DX: FOR CHRONIC PAIN 168 tablet 02/08/20 25 025 Discontinued(R eorder (will not trigger notification to Pharmacy)) loperamide (Imodium) 2 MG capsuleIndicat ions:Diarrhea, unspecified type TAKE 1 CAPSULE BY MOUTH 4 TIMES A DAY NEEDED for 30 120 capsule 02/08/20 25 025 Discontinued(R eorder (will not trigger [...] Encounters Date Type Department Care Team Description 03/07/[address] [address] Arlet Beltran MD Congestive heart failure, unspecified HF chronicity, unspecified heart failure type (CMS/HCC); Chronic bilateral low back pain with bilateral sciatica; Diarrhea, unspecified type 03/03/[address] [address] Arlet Beltran MD Chronic bilateral low back pain with bilateral sciatica 02/11/2025 Results Follow-Up [address] [address] Arlet Beltran MD NM BONE SCAN WHOLE BODY 02/06/[address] [address] Arlet Beltran MD Chronic bilateral low back pain with bilateral sciatica; Diarrhea, unspecified type 01/10/[address] [address] Arlet Beltran MD Chronic bilateral low back pain with bilateral sciatica; Diarrhea, unspecified type 01/10/2025 Refill [facility] [address] [place] [address] Arlet Bletran MD 01/10/[address] [address] Arlet Beltran MD Chronic bilateral low back pain with bilateral sciatica 01/06/2025 10:30 AM EDT Office Visit [address] [address] Arlet Beltran MD Pathological fracture of phalanx of finger of right hand with delayed healing, unspecified pathological cause, subsequent encounter (Primary Dx); Type 2 diabetes mellitus without complication, without long-term current use of insulin ([facility]) 01/02/2025 Travel 12/12/2024 Refill [facility] MEDICAL [address] [place] [address] [facility] 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 12/12/[address] [address] Arlet Beltran MD Panic attacks; Chronic pain [...] 04/12/2025 11:00 AM EDT Office Visit [facility] [address] [place] [address] Arlet Beltran MD [address] [place] [address] Health Maintenance Due Date Last Done Comments [...] 12/30/2023, 12/30/19 24 SDOH Screening 12/29/2024 12/30/2023 COVID-19 Vaccine ( - season) 2025 06/06/2022, 11/16/2020, 10/19/2020 Influenza Vaccine [...] Procedure Name Priority Date/Time Associated Diagnosis Comments BASIC METABOLIC PANEL Routine 03/01/2025 Type 2 diabetes mellitus without complication, without long-term current use of insulin ([facility]) NM BONE SCAN WHOLE BODY Routine 02/11/2025 Pathological fracture of phalanx of finger of right hand with delayed healing, unspecified pathological cause, subsequent encounter CBC WITH AUTO DIFFERENTIAL Routine 01/06/2025 11:29 AM EDT Type 2 diabetes mellitus without complication, without long-term current use of insulin ([facility]) HEMOGLOBIN A1C Routine 01/06/2025 11:29 AM EDT Type 2 diabetes mellitus without complication, without long-term current use of insulin ([facility]) COMPREHENSIVE METABOLIC PANEL Routine 01/06/2025 11:29 AM EDT Pathological fracture of phalanx of finger of right hand with delayed healing, unspecified pathological cause, subsequent encounter LIPID PANEL, STANDARD Routine 10/07/2024 10:33 AM EDT Type 2 diabetes mellitus without complication, without long-term current use of insulin ([facility]/HCC) MICROALBUMIN, RANDOM (W CREAT) Routine 08/12/2023 11:34 AM EST Type 2 diabetes mellitus without complication, without long-term current use of insulin ([facility]/HCC) from Last 3 Months or Most Recently Relevant to Health Maintenance Results * Basic metabolic panel (03/01/2025) Blood Venous blood specimen / Unknown us Arlet Beltran MD LAB BLOOD ORDERABLES Final Resul t [facility] [address] [place] [address], [place] [phone] * NM BONE SCAN WHOLE BODY (02/11/2025) Anatomical Region Laterality Modality Nuclear Medicine us Arlet Beltran MD IMG NM PROCEDURES Final Result * (ABNORMAL) CBC auto [...] 01/06/2025 Narrative Resulting Agency Comment Performed at: [facility] [id number] Radiation Protection Specialist: Romelia Randolph MD, Phone: [phone] Arlet Beltran MD LAB BLOOD ORDERABLES Final Resul t Performing Organization Address [facility] de Phone Number [facility] 1 * (ABNORMAL) Hemoglobin A1c (01/06/2025 11:29 AM EDT) Hemoglobin A1c 6.9(H) 4.8 - 5.6 % [facility] 1 Comment: Prediabetes: 5.7 - 6.4 Diabetes: >6.4 Glycemic control for adults with diabetes: <7.0 Blood Venous blood specimen / Unknown 01/06/2025 11:29 AM EDT 01/06/2025 Narrative Resulting Agency Comment Performed at: [facility] [address] [id number] Radiation Protection Specialist: Romelia Randolph MD, Phone: [phone] Arlet Beltran MD LAB BLOOD ORDERABLES Final [...] Agency Comment Performed at: 01 - [facility] [address] [id number] Radiation Protection Specialist: Romelia Randolph MD, Phone: [phone] us Arlet Beltran MD LAB BLOOD ORDERABLES [...] 12:05 AM EDT Performed at: 01 - [facility] [address] [id number] Radiation Protection Specialist: Romelia Randolph MD, Phone: [phone] us Arlet Beltran MD LAB BLOOD ORDERABLES Final Resul t Performing Organization Address [facility] de Phone Number [facility] 1 * Microalbumin, Random Urine w/Creatinine (08/12/2023 11:34 AM EST) Micro-Albumin <12.0 (<20) MG/L [facility] Comment: The urine microalbumin test is designed to monitor renal function. When screening for Bence Velasquez proteinuria, urine electrophoresis is recommended. Malb/Creat Ratio Unable to calculate (0-20) MG/GM [facility] Urine Creat For Micro Albumin 26.7 MG/DL [facility] Comment: Testing performed or reported by [facility], a Service of [facility], [address] [place] [address] Bobby Pacheco MD, Steam Shovel Oiler [facility]# [id number] Urine (Urine, Random) 08/12/2023 11:34 AM EST 08/12/2023 11:57 AM EST us Chidi jOeda NP LAB URINE ORDERABLES Final R esult Performing Organization Address [facility] Co de Phone Number [facility] [address] [place], [place] [id number] from Last 3 Months or Most Recently Relevant to Health Maintenance Insurance [facility] [address]ARD [address] [place] [id number] * Guarantor: Daniel Palmer Account Type Relation to Patient Date of Phone Billing Address Personal/Family Self [address] [facility] Care Teams Foxer Relationship Specialty Start Date End Date Arlet Beltran MD [address] [place] [address] PCP - General Internal Medicine 08/15/23
--- OUTSIDE RECORDS SUMMARY | 2025-03-08 15:38 | XMS_ITS | Encounter Summary ---
Author Organization [employer] [facility] Address [address] [place] [address] 7t [place] [address] Care Team Providers Care Belt Cutter Name Role Phone Arlet Beltran MD Primary Care Provider [phone] Reason for Visit * Reason Onset Date Comments Med Refill 10/23/2023 Encounter Details Date Type Department Care Team (Late st Contact Info) Description 10/23/2023 Refill [facility] MED[facility] [address] [place] [address] Arlet Beltran MD [address] [place] [address] Chronic bilateral low back pain with bilateral [...] Description 04/12/2025 11:00 AM EDT Office Visit [address] [address] Arlet Beltran MD [address] [place] [address] documented as of this encounter Visit Diagnoses Diagnosis Chronic bilateral low back pain with bilateral sciatica documented in this encounter Care Teams Belt Cutter Relationship Specialty Start Date End Date Arlet Beltran MD [address] [place] [address] PCP - General Internal Medicine 08/15/23 documented as of this encounter
--- OUTSIDE RECORDS SUMMARY | 2025-03-08 15:38 | XMS_ITS | Encounter Summary ---
Author Organization [facility] Address [address] [place] [address] 7[address] [place] [address] Care Team Providers Care Chief Business Officer Name Role Phone Arlet Beltran MD Primary Care Provider [phone] Chidi Ojeda NP Primary Care Provider [phone] Arlet Beltran MD Primary Care Provider [phone] Encounter Details Date Type Department Care Team (Late st Contact Info) Description 05/28/[address] [facility] MEDICAL [address] [place] [address] Gricel La [place] Social History Tobacco Use [...] AM EDT Office Visit [facility] [address] [place] [address] Arlet Beltran MD [address] [place] [address] documented as of this encounter Procedures Procedure [...] lite in Saliva by Confirmatory method POSITIVE(A) [facility] Comment: Reference range: Cutoff EQ 10 (NOTE) Confirmation performed by Mass Spectrometry EDDP NEGATIVE [facility] Comment:Reference range: Cut off EQ 25 Methadone, Oral Fluid POSITIVE(A) [facility] Methadone 71 [facility] Comment: Reference range: Cutoff EQ 25 Unit: ng/mL Testing performed or reported by [facility], a Service of [facility], [address] [place] [address] Bobby Pacheco MD, Repair Servicer CLIA# [id number] 03/28/2023 11:3 2 AM EDT 03/28/2023 7:28 PM EDT Arlet Beltran MD LAB BODY FLUIDS AND STOOLS ORDER CLAUDE Final Result [facility] [address] [place] [address] * (ABNORMAL) TSH (06/06/2022 9:40 AM EST) TSH 5.61(H) (0.4-4.2) uIU/mL [facility] Comment: Testing performed or reported by [facility], a Service of [facility], [address] [place] [address] Elias Liao MD, Repair Servicer CLIA# [id number] 06/06/2022 9:40 AM EST 06/06/2022 9:46 AM EST Arlet Beltran MD LAB BLOOD ORDERABLES Final Resul t Performing Organization Address [facility]/ZIP Co de Phone Number [facility] [address] [place] [address] * (ABNORMAL) Lipid Panel, Standard (06/06/2022 9:40 AM EST) Cholesterol, Total 134 (<200) MG/DL [facility] Triglyceride (mg/dL) in Serum/Plasma 494(H) (<150) MG/DL [facility] HDL Cholesterol 25(L) (>39) MG/DL [facility] LDL Cholesterol, Calculated 10 (0-130) MG/DL [facility] Non HDL Chol. (LDL+VLDL) 109 (<160) MG/DL [facility] Comment: Testing performed or reported by [facility], a Service of [facility], [address] [place] [address] Elias Liao MD, Repair Servicer [facility]# [id number] 06/06/2022 9:40 AM EST 06/06/2022 9:46 AM EST Arlet Beltran MD LAB BLOOD ORDERABLES Final Resul t Performing Organization Address [facility] [[email or web address]] Co de Phone Number [address] [address] * (ABNORMAL) Comprehensive Metabolic Panel (06/06/2022 9:40 AM EST) Glucose 343(H) (70-99) MG/DL [facility] BUN 38(H) (6-20) MG/DL [facility] Creatinine, Serum 1.1 (0.7-1.2) MG/DL [facility] Sodium 135 (133-145) MMOL/L [facility] Potassium 4.2 (3.6-5.2) MMOL/L [facility] Chloride 89(L) (98-107) MMOL/L [facility] Bicarbonate 29 (22-29) MMOL/L [facility] Anion Gap 17 (4-17) [facility] Albumin 4.3 (3.4-4.8) GM/DL [facility] Calcium 9.5 (8.6-10.5) MG/DL [facility] Bilirubin, Total 0.6 (0-1.2) MG/DL [facility] Total Protein 8.2 (6.2-8.2) GM/DL [facility] Albumin/Globulin Ratio 1.1 [facility] AST 26 (0-40) U/L [facility] Alkaline Phosphatase 77 (40-129) U/L [facility] ALT (SGPT) 17 (0-41) U/L [facility] eGFR Creatinine 83 ML/MIN/1.7 3 M2 [facility] Comment: Creatinine based estimated glomerular filtration (eGFR) in adults is calculated using the National [employer] recommended 2020 CKD-EPI equation. Estimates GFR from serum creatinine, age and sex. Testing performed or reported by [facility], a Service of [facility], [address] [place] [address] Elias Liao MD, Repair Servicer [facility]# [id number] 06/06/2022 9:40 AM EST 06/06/2022 9:46 AM EST us Arlet Beltran MD LAB BLOOD ORDERABLES Final Resul t [address] [address] * (ABNORMAL) CBC (06/06/2022 9:40 AM EST) WBC 6.6 (4.0-11.0) K/MM3 [facility] RBC 4.20(L) (4.70-6.10 ) M/MM3 [facility] HGB 11.2(L) (13.7-17.1 ) GM/DL [facility] HCT 36.6(L) (40.5-50.0 ) % [facility] MCV 87.1 (80.0-94.0 ) FL [facility] MCH 26.7(L) (27.0-34.0 ) PG [facility] McHC 30.6(L) (33.0-37.0 ) g/dL [facility] PLT 267 (150-460) K/MM3 [facility] RDW-SD 47.7(H) (<47.0) FL [facility] MPV 12.3 (9.4-12.4) FL [facility] Automated NRBC 0.0 #/100 WBC'S [facility] ABS NRBC 0.0 K/MM3 [facility] Comment: Testing performed or reported by [facility], a Service of [facility], [address] [place] [address] Elias Liao MD, Repair Servicer [facility]# [id number] 06/06/2022 9:40 AM EST 06/06/2022 9:46 AM EST us Arlet Beltran MD LAB BLOOD ORDERABLES Final Resul t [facility] [address] [place] [address] documented in this encounter Visit Diagnoses Not on filedocumented in this encounter Care Teams Chief Business Officer Relationship Specialty Start Date End Date Arlet Beltran MD [address] [place] [address] PCP - General Internal Medicine 04/14/23 08/03/23 Chidi Ojeda NP [address] [place] [address] PCP - General Internal Medicine 08/04/23 08/14/23 Arlet Beltran MD [address] [place] [address] PCP - General Internal Medicine 08/15/23 documented as of this encounter
--- OUTSIDE RECORDS SUMMARY | 2025-03-08 15:38 | XMS_ITS | Encounter Summary ---
Author Organization [employer] Address [address] [place] [address] 7[address] [place] [address] Care Team Providers Care Weigher Bulker Name Role Phone Arlet Beltran MD Primary Care Provider [phone] Chidi Oejda NP Primary Care Provider [phone] Arlet Beltran MD Primary Care Provider [phone] Reason for Visit * Reason Comments Med Refill Encounter Details Date Type Department Care Team (Late st Contact Info) Description 05/30/2023 Refill [place] [facility] [address] [place] [address] Arlet Beltran MD [address] [place] [address] Chronic pain after traumatic injury; Panic attacks [...] Description 04/12/2025 11:00 AM EDT Office Visit [facility] MED[facility] [address] [place] [address] Arlet Beltran MD [address] [place] [address] documented as of this encounter Visit Diagnoses Diagnosis Chronic pain after traumatic injury Panic attacks Panic disorder without agoraphobia documented in this encounter Care Teams Weigher Bulker Relationship Specialty Start Date End Date Arlet Beltran MD [address] [place] [address] PCP - General Internal Medicine 04/14/23 08/03/23 Chidi Ojead NP [address] [place] [address] PCP - General Internal Medicine 08/04/23 08/14/23 Arlet Beltran MD [address] [place] [address] PCP - General Internal Medicine 08/15/23 documented as of this encounter
--- OUTSIDE RECORDS SUMMARY | 2025-03-08 15:38 | XMS_ITS | Encounter Summary ---
Author Organization [employer] Address [address] [place] [address] 7t [place] [address] Care Team Providers Care Power Reactor Supervisor Name Role Phone Arlet Beltran MD Primary Care Provider [phone] Chidi Ojeda NP Primary Care Provider [phone] Arlet Beltran MD Primary Care Provider [phone] Reason for Visit * Reason Onset Date Comments Med Refill 05/30/2023 Encounter Details Date Type Department Care Team (Late st Contact Info) Description 05/30/2023 Refill [facility] MED[facility] [address] [place] [address] Arlet Beltran MD [address] [place] [address] Panic attacks; Chronic pain after traumatic injury [...] [facility] [address] [place] [address] Arlet Beltran MD [address] [place] [address] documented as of this encounter Visit Diagnoses Diagnosis Panic attacks Panic disorder without agoraphobia Chronic pain after traumatic injury documented in this encounter Care Teams Power Reactor Supervisor Relationship Specialty Start Date End Date Arlet Beltran MD [address] [place] [address] PCP - General Internal Medicine 04/14/23 08/03/23 Chidi Ojeda NP [address] [place] [address] PCP - General Internal Medicine 08/04/23 08/14/23 Arlet Beltran MD [address] [place] [address] PCP - General Internal Medicine 08/15/23 documented as of this encounter
--- OUTSIDE RECORDS SUMMARY | 2025-03-08 15:38 | XMS_ITS | Encounter Summary ---
Author Organization [employer] Address [address] [place] [address] 7[address] [place] [address] Care Team Providers Care Card Placer Name Role Phone Arlet Beltran MD Primary Care Provider [phone] Chidi Ojeda NP Primary Care Provider [phone] Arlet Beltran MD Primary Care Provider [phone] Reason for Visit * Reason Onset Date Comments Med Refill 03/31/2023 Encounter Details Date Type Department Care Team (Late st Contact Info) Description 03/31/2023 Refill [facility] MED[facility] [address] [place] [address] Arlet Beltran MD [address] [place] [address] Chronic pain after traumatic injury Social History [...] 04/12/2025 11:00 AM EDT Office Visit [facility] [address] [place] [address] Arlet Beltran MD [address] [place] [address] documented as of this encounter Visit Diagnoses Diagnosis Chronic pain after traumatic injury documented in this encounter Care Teams Card Placer Relationship Specialty Start Date End Date Arlet Beltran MD [address] [place] [address] PCP - General Internal Medicine 04/14/23 08/03/23 Chidi Ojeda NP [address] [place] [address] PCP - General Internal Medicine 08/04/23 08/14/23 Arlet Beltran MD [address] [place] [address] PCP - General Internal Medicine 08/15/23 documented as of this encounter
--- OUTSIDE RECORDS SUMMARY | 2025-03-08 15:38 | XMS_ITS | Encounter Summary ---
Author Organization [facility] Address [address] [place] [address] 7[address] [place] [address] Care Team Providers Care Placement Coordinator Name Role Phone Arlet Beltran MD Primary Care Provider [phone] Chidi Ojeda NP Primary Care Provider [phone] Arlet Beltran MD Primary Care Provider [phone] Reason for Visit * Reason Onset Date Comments Med Refill 05/22/2023 Encounter Details Date Type Department Care Team (Late st Contact Info) Description 05/22/2023 Refill [facility] MED[facility] [address] [place] [address] Arlet Beltran MD [address] [place] [address] Chronic pain after traumatic injury Social History [facility] [address] [place] [address] Arlet Beltran MD [address] [place] [address] documented as of this encounter Visit Diagnoses Diagnosis Chronic pain after traumatic injury documented in this encounter Care Teams Placement Coordinator Relationship Specialty Start Date End Date Arlet Beltran MD [address] [place] [address] PCP - General Internal Medicine 04/14/23 08/03/23 Chidi Ojeda NP [address] [place] [address] PCP - General Internal Medicine 08/04/23 08/14/23 Arlet Beltran MD [address] [place] [address] PCP - General Internal Medicine 08/15/23 documented as of this encounter
--- OUTSIDE RECORDS SUMMARY | 2025-03-08 15:38 | XMS_ITS | Clinical Summary ---
Author Organization [address] [place] [address] Address [address] [place] [address] Phone Care Team Providers Care Clinical Nursing Professor Name Role Phone Arlet Beltran MD Primary Care Provider [phone] Allergies Active Allergy Reactions Criticality Noted Date [...] warfarin (COUMADIN) 2 mg tablet Managed by [facility]. Active metFORMIN XR (GLUCOPHAGE-XR) [...] in the past. CHF (congestive heart failure) ([facility] V24, [facility] V28) 08/12/2023 Overview (04/20/2024): 53-year-old man with [...] (08/12/2023) Urine Albumin Creatinine Ratio Abstracted Result [facility] Provider HEALTH MAINTENANCE Final Result * Annual BMP Blood Test (08/12/2023) Annual BMP Blood Test Abstracted [facility] Provider HEALTH MAINTENANCE Final Result * Hemoglobin A1c (08/12/2023) Pathologist [facility] Hemoglobin A1C 0.0 % Comment:No interpretation, A bstracted Blood Venous blood specimen / Unknown Result [facility] Provider LAB BLOOD ORDERABLES Michaela l Result * Lipid panel (08/12/2023) Triglycerides 0 mg/dL Comment:No interpretation, A bstracted Cholesterol 0 mg/dL Comment:No interpretation, A bstracted HDL 0 mg/dL Comment:No interpretation, A bstracted LDL Cholesterol 0 mg/dL Comment:No interpretation, A bstracted Blood Venous blood specimen / Unknown Result [facility] Provider LAB BLOOD ORDERABLES Michaela l Result from Last 3 Months or Most Recently Relevant to Health Maintenance Insurance MEDICARE MEDICAID - [place] Care Teams Clinical Nursing Professor Relationship Specialty Start Date End Date Arlet Beltran MD [address] [place] [address] PCP - General 08/25/13
== END 2025-03-08 12:41 | disposition home or self-care (01) ==
LOC: HO.CT 12:40
PROVIDERS: PCP Internal Medicine; Visit Provider Internal Medicine
DX: M84.44 Pathological fracture, hand and fingers (principal)
CPT/HCPCS: 71260; 74177; Q9967

== ENCOUNTER → 2025-03-08 14:41 | Outpatient (BNV) | payer MEDICARE, MEDICAID, SELFPAY | PROVIDERS: PCP Internal Medicine; Visit Provider Radiology Diagnostic Radiology | DX: K80.20 Calculus of gallbladder without cholecystitis without obstruction (principal); K40.90 Unilateral inguinal hernia, without obstruction or gangrene, not specified as recurrent; N62 Hypertrophy of breast | CPT/HCPCS: 71260; 74177 ==